=== PATIENT | male | born 1960 | race Caucasian/White ===

== ENCOUNTER 2017-10-14 16:43 | Outpatient (CLI) | payer BC | END 2017-10-14 16:44 | disposition home or self-care (01) | LOC: BICRAD 16:43 | PROVIDERS: ATTEND Specialist | DX: J44.9 Chronic obstructive pulmonary disease, unspecified (principal) | CPT/HCPCS: 71046 ==

== ENCOUNTER 2019-01-27 16:57 | Inpatient (IN) | payer BC ==
[~2019-01-27 16:57] MED LIST: ISOVUE-370 76%-LOCM 1 ML ONE
[2019-01-27 17:24] LABS: #Eosinphils 0.2 thou/uL (0.0-0.7); #Lymphocytes 1.1 thou/uL (1.20-3.40); #Monocytes 1.7 thou/uL (0.11-0.59); #Neutrophils 14.2 thou/uL (1.40-6.50); %Basophils 0.2 % (0.0-1.0); %Eosinophils 1.1 % (0.0-10.0); %Lymphocytes 6.4 % (21.0-51.0); %Monocytes 9.8 % (0.0-10.0); %Neutrophils 82.5 % (42.0-75.0); Hemoglobin 12.7 g/dL (14.0-18.0); Mean Corpuscular HGB CONC 34.4 g/dL (32.0-36.0); Mean Corpuscular Volume 87.1 fL (78.0-98.0); Mean Platelet Volume 6.7 fL (7.4-10.4); Platelet Count 398 thou/uL (130-400); RBC Distribution Width 11.9 % (11.5-14.5); Red Blood Cell (RBC) Count 4.25 mill/uL (4.70-6.10); White Blood Cell (WBC) Count 17.3 thou/uL (4.8-10.8)
[2019-01-27] MEDS ORDERED: Ondansetron PF 4 MG/2 ML Vial ONE (17:41)
[2019-01-27] MEDS ORDERED: Morphine 4 MG/ML VIAL ONE (17:41)
[2019-01-27 17:53] LABS: ALT (SGPT) 12 U/L (8-55); AST (SGOT) 13 U/L (5-34); Alkaline Phosphatase 91 U/L (40-150); Anion Gap 15 mmol/L (10-20); BUN (Urea Nitrogen) 15 mg/dL (8.4-25.7); Bilirubin, Total 0.4 mg/dL (0.2-1.2); Calc. Creatinine Clearance 0 mL/min (70-130); Calcium 9.9 mg/dL (7.8-10.44); Carbon Dioxide 26 mmol/L (22-29); Chloride 98 mmol/L (98-107); Estimated GFR-MDRD Greater than 90; Globulin 3.5 g/dL (2.4-3.5); Glucose 100 mg/dL (70-105); Lipase 8 U/L (8-78); Potassium 3.8 mmol/L (3.5-5.1); Protein, Total 7.5 g/dL (6.0-8.3); Sodium 135 mmol/L (136-145)
[2019-01-27 18:14] LABS: Bilirubin Small (Negative); Blood, Urine Negative (Negative); Clarity CLEAR (Clear); Glucose, Urine (Dipstick) Negative (Negative); Leukocyte Negative (Negative); Nitrite Negative (Negative); Protein, Urine (Dipstick) 30 mg/dL (Neg-Trace); Specific Gravity, Urine 1.024 (1.002-1.036)
[2019-01-27 18:16] LABS: Bacteria/HPF None Seen HPF (None Seen); Hyaline Casts/LPF 0-3 HYALINE CAST LPF (0-3 Hyaline); Squamous Epithelial 0-3 HPF (0-3)
--- NOTE | 2019-01-27 18:38 | CT ---
Contrast-enhanced CTA chest. HISTORY: Cough. Contrast-enhanced CTA chest performed. 2-D and 3-D reconstruction images performed on an independent 3-D workstation. CTA chest demonstrate coronary artery calcifications. Areas of emphysematous changes seen in superior segment of both upper lobes. No evidence of lymphadenopathy seen. No evidence of filling defects seen in the pulmonary arteries to suggest pulmonary emboli. The thoracic aorta is unremarkable with calcination seen. IMPRESSION: No evidence of pulmonary emboli.
[2019-01-27] MEDS ORDERED: Piperacillin/Tazobactam 4.5 GM VIAL ONE (20:03)
[2019-01-27] MEDS ORDERED: hydrALAZINE 20 MG/ML VIAL SLOW IVP PRN (20:43)
[2019-01-27] MEDS ORDERED: Lorazepam 2 MG/ML VIAL SLOW IVP PRN (20:43)
[2019-01-27] MEDS ORDERED: Dextrose 50% Abboject 50 ML SYRINGE SLOW IVP PRN (20:43)
[2019-01-27] MEDS ORDERED: Dextrose 5% in Water 1,000 ML IV PRN (20:43)
[2019-01-27] MEDS ORDERED: Ondansetron ODT 4 MG TAB PO PRN (20:43)
[2019-01-27] MEDS ORDERED: Ondansetron PF 4 MG/2 ML Vial IVP PRN (20:43)
[2019-01-27] MEDS ORDERED: traMADol HCl 50 MG TAB PO PRN (20:47)
[2019-01-27] MEDS ORDERED: Acetaminophen 1,000 MG in Premix Bag 1 BAG IVPB PRN (20:47)
[2019-01-27] MEDS: Lactated Ringer's 1,000 ML IV SCH (22:15)
[2019-01-27] MEDS: Enoxaparin Sodium 40 MG/0.4 ML SYRINGE SC SCH (22:15)
[2019-01-28] MEDS: Piperacillin/Tazobactam 3.375 GM in Sodium Chloride 0.9% 100 ML IVPB SCH ×4 (02:10→20:55)
--- NOTE | 2019-01-28 02:49 | HP ---
HISTORY OF PRESENT ILLNESS: Nabor Manning is a 58-year-old male patient, who drives trucks, works in the oil field, has had been ill for the past 3 to 4 weeks. He has had pain in his lower abdomen. He has suffered anorexia, weight loss, increased pain, but no fever. He has never had a colonoscopy. He is followed by Dr. Luis Robins. He saw Dr. Luis Robins in the office yesterday, and his treatment started for UTI. He does not recall the name of the antibiotic he was prescribed. He presents to the emergency room tonight and he was evaluated and noted to have a white count of 17, hemoglobin of 12, and basic metabolic profile is essentially normal. He then underwent a CAT scan of the abdomen and pelvis as well as a chest thorax CTA revealing diverticular abscess abutting the bladder 6.8 cm in diameter with air-fluid level. I have discussed this with Dr. César Evans, his outpatient radiologist, and after discussion with Dr. Evans, it is a minimal percutaneous drainage, and we will plan this on Wednesday. We will admit him for intravenous antibiotics. ALLERGIES: NONE. SOCIAL HISTORY: Tobacco a pack per day. Alcohol, none. PAST SURGICAL HISTORY: Noncontributory. PAST MEDICAL HISTORY: Diabetes mellitus type 2 on metformin, elevated cholesterol, bipolar illness. He is on vitamin D. PAST SURGICAL HISTORY: Noncontributory. No history of cardiac disease. MEDICATION LIST: Not provided. PHYSICAL EXAMINATION: VITAL SIGNS: Blood pressure 120/70, respiratory rate 18, and heart rate 74. HEAD, EARS, EYES, NOSE, AND THROAT: Unremarkable. LUNGS: Clear to auscultation. CARDIAC: Regular rate and rhythm without murmur or gallop. ABDOMEN: Soft. Mild tenderness in left lower quadrant. Otherwise, the abdomen is soft and nontender. EXTREMITIES: Unremarkable. NEUROLOGICAL: Intact. No ankle edema. ASSESSMENT AND PLAN: Diverticular abscess. We will plan admission to the hospital. Intravenous antibiotics and plan percutaneous drain CT-guided tomorrow. I have discussed with Dr. Evans, and we will plan this on Wednesday. We will make further recommendations depending on this procedure, more likely we will discharge home in the next few days on oral antibiotics and followup CAT scan in my office. Follow up CAT scan and follow up in my office. Hopefully, we can treat this non-operatively, and he will need a future colonoscopy in the next 6 to 8 weeks. Job ID: [id number]
[2019-01-28 04:35] VITALS: BMI 19.4
[2019-01-28 05:51] LABS: #Eosinphils 0.3 thou/uL (0.0-0.7); #Lymphocytes 0.9 thou/uL (1.20-3.40); #Monocytes 1.6 thou/uL (0.11-0.59); #Neutrophils 12.5 thou/uL (1.40-6.50); %Basophils 0.3 % (0.0-1.0); %Eosinophils 1.7 % (0.0-10.0); %Lymphocytes 5.6 % (21.0-51.0); %Monocytes 10.6 % (0.0-10.0); %Neutrophils 81.8 % (42.0-75.0); Hemoglobin 11.6 g/dL (14.0-18.0); Mean Corpuscular HGB CONC 32.6 g/dL (32.0-36.0); Mean Corpuscular Hemoglobin 28.7 pg (27.0-31.0); Mean Corpuscular Volume 88.2 fL (78.0-98.0); Mean Platelet Volume 6.8 fL (7.4-10.4); Platelet Count 347 thou/uL (130-400); RBC Distribution Width 11.9 % (11.5-14.5); Red Blood Cell (RBC) Count 4.04 mill/uL (4.70-6.10); White Blood Cell (WBC) Count 15.3 thou/uL (4.8-10.8)
[2019-01-28 05:56] LABS: INR-International Normal Ratio 1.2; Prothrombin Time 15.6 SEC (12.0-14.7)
[2019-01-28 06:23] LABS: Anion Gap 10 mmol/L (10-20); BUN (Urea Nitrogen) 9 mg/dL (8.4-25.7); Calc. Creatinine Clearance 81 mL/min (70-130); Carbon Dioxide 25 mmol/L (22-29); Chloride 105 mmol/L (98-107); Estimated GFR-MDRD Greater than 90; Glucose 115 mg/dL (70-105); Potassium 4.3 mmol/L (3.5-5.1); Sodium 136 mmol/L (136-145)
[2019-01-28] MEDS: Lactated Ringer's 1,000 ML IV SCH ×3 (08:03→19:05)
[2019-01-28] MEDS: Morphine 2 MG/ML SYRINGE SLOW IVP PRN (08:07)
[2019-01-28] MEDS ORDERED: Sodium Bicarbonate 2.5 MEQ/5 ML VIAL ONE (09:25)
[2019-01-28] MEDS ORDERED: Midazolam HCl 2 mg/2 ml Vial ONE (09:25)
[2019-01-28] MEDS ORDERED: Fentanyl 100 MCG/2 ML VIAL ONE (09:25)
--- NOTE | 2019-01-28 10:44 | CT ---
CT-guided abdominal abscess drainage HISTORY: Diverticular abscess. FINDINGS: After explaining the procedure and answering all questions, limited CT imaging was performe d. Sterile technique, buffered local seizure, CT guidance, and an anterior midline lower abdominal approach were used to carefully advance an 8 Paraguayan locking loop catheter into the gas and fluid cont aining abscess in the central lower abdomen. Trocar technique was used. Gas and a total volume of 250 cc of brown liquid fecal material were aspirated. A portion sent to lab oratory for evaluation. Catheter was secured externally with 0 silk suture and left draining to gravity. Patient tolerated the procedure well and was returned in improved condition. IMPRESSION: Technically successful CT-guided abscess drainage.
[2019-01-28] MEDS: RisperDAL Oral Solution 1 MG/ML UDCUP PO SCH (10:51)
--- NOTE | 2019-01-28 12:28 | PRG ---
DATE OF SERVICE: 01/28/2019 SUBJECTIVE: Nabor Manning is doing well today. He underwent percutaneous drainage of his diverticular abscess. This has retrieved foul smelling. OBJECTIVE: VITAL SIGNS: Temperature 100 degrees, 108 heart rate, blood pressure 126/68. LUNGS: Clear to auscultation. CARDIAC: Regular rate and rhythm. No murmur or gallop. ABDOMEN: Soft, nontender, and nondistended. Drainage catheter in place. Purulent drainage in his drain bag. LABORATORY DATA: This morning, his white count is down from 17 to 15. Hemoglobin stable at 11.6. Basic metabolic profile is normal. ASSESSMENT AND PLAN: Diverticular abscess with status post percutaneous drainage today CT-guided. We will plan irrigation of his drainage catheter 3 times a day, instructed the patient to have irrigate this. Anticipate discharge home in the next few days with plans to see him as an outpatient with a followup CAT scan and follow up in my office. He will need a future colonoscopy. Job ID: [id number]
[2019-01-28] MEDS: Ketorolac Tromethamine 30 MG/ML VIAL IVP PRN (17:26)
[2019-01-28] MEDS: Enoxaparin Sodium 40 MG/0.4 ML SYRINGE SC SCH (21:01)
[2019-01-29] MEDS: Piperacillin/Tazobactam 3.375 GM in Sodium Chloride 0.9% 100 ML IVPB SCH ×4 (02:52→21:00)
[2019-01-29] MEDS: Lactated Ringer's 1,000 ML IV SCH ×2 (02:52→10:59)
[2019-01-29] MEDS: RisperDAL Oral Solution 1 MG/ML UDCUP PO SCH (08:14)
[2019-01-29] MEDS: Morphine 2 MG/ML SYRINGE SLOW IVP PRN ×2 (08:19→10:28)
[2019-01-29] MEDS: Ketorolac Tromethamine 30 MG/ML VIAL IVP PRN (11:38)
--- NOTE | 2019-01-29 11:55 | PRG ---
DATE OF SERVICE: 01/29/2019 SUBJECTIVE: Nabor Manning is doing well today. He underwent a CT-guided percutaneous drainage of his diverticular abscess yesterday. He feels much better. OBJECTIVE: VITAL SIGNS: Temperature 98.8 degrees, pulse 86, blood pressure 112/61. LUNGS: Clear to auscultation. CARDIAC: Regular rate and rhythm without murmur or gallop. ABDOMEN: Soft, nontender, and nondistended. LABORATORY DATA: Drain purulent. Cultures, gram-negative luis, not hemolytic streptococcus, on Zosyn. ASSESSMENT AND PLAN: Diverticular abscess, status post CT-guided percutaneous drainage. Continue treatment. Anticipate discharge home tomorrow after teaching him drain care, irrigation, recording the output. We will send him home on oral antibiotics with followup outpatient CAT scan and visit in my office. Job ID: [id number]
[2019-01-29] MEDS: Morphine 4 MG/ML VIAL SLOW IVP PRN (14:59)
[2019-01-29] MEDS: Enoxaparin Sodium 40 MG/0.4 ML SYRINGE SC SCH (21:09)
[2019-01-29] MEDS: Acetaminophen 500 MG TAB PO PRN (21:10)
[2019-01-29] MEDS: HumaLOG 300 UNITS/3 ML VIAL SC PRN (21:13)
[2019-01-30] MEDS: Piperacillin/Tazobactam 3.375 GM in Sodium Chloride 0.9% 100 ML IVPB SCH ×4 (02:41→20:21)
[2019-01-30] MEDS: Morphine 4 MG/ML VIAL SLOW IVP PRN (06:18)
[2019-01-30] MEDS: RisperDAL Oral Solution 1 MG/ML UDCUP PO SCH (09:18)
[2019-01-30] MEDS: Acetaminophen 500 MG TAB PO PRN ×2 (09:33→17:55)
[2019-01-30] MEDS: traMADol HCl 50 MG TAB PO PRN ×2 (09:35→17:55)
[2019-01-30] MEDS: HumaLOG 300 UNITS/3 ML VIAL SC PRN ×2 (12:04→20:36)
[2019-01-30] MEDS: Enoxaparin Sodium 40 MG/0.4 ML SYRINGE SC SCH (20:20)
--- NOTE | 2019-01-30 23:30 | PRG ---
DATE OF SERVICE: 01/30/2019 SUBJECTIVE: Nabor Manning is doing well today. OBJECTIVE: VITAL SIGNS: Temperature 99.8 degrees, heart rate 101, blood pressure 97/55. LABORATORY DATA: Laboratories, none today. Drainage from his CT-guided drain, 45 mL of purulent. He feels better. His bladder type of symptom complaints are improving, but not resolved. He was reassured. Lungs are clear to auscultation. Cardiac, Regular rate and rhythm without murmur or gallop. Abdomen is soft and nontender. ASSESSMENT AND PLAN: Resolving diverticular abscess. Continue CT-guided drainage. Anticipate discharge home tomorrow on oral antibiotics. Job ID: [id number]
[2019-01-31] MEDS: Piperacillin/Tazobactam 3.375 GM in Sodium Chloride 0.9% 100 ML IVPB SCH ×3 (01:41→14:45)
[2019-01-31] MEDS: Acetaminophen 500 MG TAB PO PRN ×3 (01:46→14:49)
[2019-01-31] MEDS: traMADol HCl 50 MG TAB PO PRN ×2 (05:38→17:13)
[2019-01-31] MEDS: RisperDAL Oral Solution 1 MG/ML UDCUP PO SCH (08:40)
--- NOTE | 2019-01-31 10:02 | CT ---
Contrast-enhanced CTA chest. HISTORY: Cough. Contrast-enhanced CTA chest performed. 2-D and 3-D reconstruction images performed on an independent 3-D workstation. CTA chest demonstrate coronary artery calcifications. Areas of emphysematous changes seen in superior segment of both upper lobes. No evidence of lymphadenopathy seen. No evidence of filling defects seen in the pulmonary arteries to suggest pulmonary emboli. The thoracic aorta is unremarkable with calcination seen. IMPRESSION: No evidence of pulmonary emboli. Transcribed Date/Time: 01/31/2019 10:02 AM
--- NOTE | 2019-01-31 10:05 | CT ---
CT OF THE ABDOMEN AND PELVIS WITH CONTRAST 01/27/19 COMPARISON: None. HISTORY: Abdominal pain. Patient is taking an antibiotic for urinary tract infection. TECHNIQUE: Multiple contiguous axial images were obtained in a CT of the abdomen and pelvis with contrast. Coron al reformats were performed. FINDINGS: There is a 6.9 cm air fluid level sitting on top of the urinary bladder. This is immediately adjacent to the sigmoid colon which contains numerous diverticula. This likely represents a contained perfora blane abscess likely from prior acute diverticulitis. There is mild stranding change adjacent to this f luid collection and adjacent to the sigmoid colon. No free air or free fluid is seen in the abdomen o r pelvis. There is a 1.78 cm hypodensity in the right kidney which likely represents a cyst. The gallbladder, l eft kidney, adrenal glands, spleen, and pancreas are unremarkable. There are Subcentimeter hypodensit ies in the right lobe of the liver near the dome which are too small to definitely characterize but l ikely represents cysts. The small bowel is normal in caliber. The appendix is normal. No abdominal or pelvic lymphadenopathy are seen. Atherosclerotic calcifications are see in the aorta. Degenerative changes are seen in the spine. Please see dedicated chest CT for findings above the diap hragm. IMPRESSION: 1. Abscess in the pelvis likely sequela from acute diverticulitis. 2. Right renal cyst. 3. Likely hepatic cysts. POS: [facility]
[2019-01-31 17:05] VITALS: BP 97/57; TEMP 98.6
[2019-01-31] MEDS ORDERED: Amoxicillin/Potassium Clav 500 MG TAB PO SCH (21:00)
--- NOTE | 2019-02-01 02:49 | DIS ---
DATE OF ADMISSION: 01/27/2019 DATE OF DISCHARGE: 01/31/2019 DISCHARGE DIAGNOSIS: Diverticular abscess. PROCEDURE: CT-guided drainage of diverticular abscess. Plan home with the drain. He was instructed to irrigate this 2 to 3 times a day with saline. He is given saline syringes to accomplish this. He is to record the output. He will have a CAT scan of the abdomen and pelvis p.o. and IV contrast next week, day that he sees me and we will see him after that to determine when we can remove the drain. He is sent home with Augmentin 875 b.i.d. for 10 days, Levaquin 500 daily for 10 days, Ultram 50, #20. HISTORY: A 58-year-old male with pelvic and low back pain, urinary type symptoms, treated initially UTI, presented to the hospital emergency room with findings of large diverticular abscess. He was admitted overnight on intravenous antibiotics, underwent CT-guided drainage of his large abscess. He is instructed on drain maintenance and recording the output. PLAN: Follow up in my office next week after a CAT scan to determine drain management. He will need a future colonoscopy, given a low-fiber diet for 2 to 3 weeks, can transition to high-fiber after this. Job ID: [id number]
[2019-02-01] MEDS ORDERED: Ibuprofen 600 MG TAB PO PRN (23:59)
== END 2019-01-31 18:28 | disposition home or self-care (01) | DRG 392 ==
LOC: ERS 16:57 → SURG B 21:37
PROVIDERS: ADMIT Specialist; ATTEND Specialist
PROC: 0W9G30Z Drainage of Peritoneal Cavity with Drainage Device, Percutaneous Approach (ICD-10-PCS; principal; 2019-01-28)
DX: K57.80 Diverticulitis of intestine, part unspecified, with perforation and abscess without bleeding (principal); Z68.1 Body mass index [BMI] 19.9 or less, adult; R63.0 Anorexia; F17.210 Nicotine dependence, cigarettes, uncomplicated; E11.9 Type 2 diabetes mellitus without complications; F31.9 Bipolar disorder, unspecified; E78.5 Hyperlipidemia, unspecified; Z79.84 Long term (current) use of oral hypoglycemic drugs; Z79.899 Other long term (current) drug therapy
CPT/HCPCS: 36415; 36416; 49020; 71275; 74177; 77002; 80048; 80053; 81003; 81015; 83690; 84484; 85025; 85610; 85730; 87070; 87077; 87186; 87205; 93005; 96361; 96365; 96375; C1729; J1650; J1885; J2250; J2270; J2405; J2543; J3010; J3490; Q9966

== ENCOUNTER 2019-02-01 13:56 | Outpatient (CLI) | payer BC ==
--- NOTE | 2019-02-01 14:47 | CT ---
Exam: CT PELVIS WITHOUT CONTRAST: COMPARISON: 01/28/2019 HISTORY: Pelvic abscess. Patient has undergone recent percutaneous drainage catheter placement. FINDINGS: Redemonstration of a complex fluid collection measuring 7.4 x 7.4 x 7.0 cm. There is evidence of hype rdense material with pockets of air suggesting fecal material. Catheter position is appropriate, in the nondependent portion. Inflammatory changes of the adjacent colon are noted. There is mass effect upon the urinary IMPRESSION: Persistent abscess with fecal material. There is implication for a fistulous connection between the a djacent colon and this infected/fecal material containing collection. Results study discussed with Dr. Vargas 02/01/2019 at 2:46 PM Code CR Transcribed Date/Time: 02/01/2019 2:55 PM
== END 2019-02-01 13:57 | disposition home or self-care (01) ==
LOC: CT 13:56
PROVIDERS: ATTEND Specialist
DX: K65.1 Peritoneal abscess (principal)
CPT/HCPCS: 72192

== ENCOUNTER 2019-02-01 16:02 | Inpatient (IN) | payer BC ==
[2019-02-01 18:16] VITALS: BMI 19.6
[2019-02-01] MEDS ORDERED: Acetaminophen 500 MG TAB PO PRN (18:18)
[2019-02-01 19:05] LABS: #Eosinphils 0.5 thou/uL (0.0-0.7); #Lymphocytes 0.8 thou/uL (1.20-3.40); #Monocytes 1.1 thou/uL (0.11-0.59); #Neutrophils 11.2 thou/uL (1.40-6.50); %Basophils 0.3 % (0.0-1.0); %Eosinophils 3.7 % (0.0-10.0); %Lymphocytes 5.9 % (21.0-51.0); %Neutrophils 82.1 % (42.0-75.0); Hemoglobin 10.4 g/dL (14.0-18.0); Mean Corpuscular HGB CONC 31.8 g/dL (32.0-36.0); Mean Corpuscular Hemoglobin 28.4 pg (27.0-31.0); Mean Corpuscular Volume 89.3 fL (78.0-98.0); Mean Platelet Volume 6.4 fL (7.4-10.4); Platelet Count 393 thou/uL (130-400); RBC Distribution Width 12.2 % (11.5-14.5); Red Blood Cell (RBC) Count 3.66 mill/uL (4.70-6.10); White Blood Cell (WBC) Count 13.6 thou/uL (4.8-10.8)
[2019-02-01 19:25] LABS: ALT (SGPT) 45 U/L (8-55); AST (SGOT) 38 U/L (5-34); Albumin 3.1 g/dL (3.5-5.0); Alkaline Phosphatase 144 U/L (40-150); Anion Gap 11 mmol/L (10-20); BUN (Urea Nitrogen) 10 mg/dL (8.4-25.7); Bilirubin, Total 0.2 mg/dL (0.2-1.2); Calc. Creatinine Clearance 87 mL/min (70-130); Carbon Dioxide 28 mmol/L (22-29); Chloride 104 mmol/L (98-107); Estimated GFR-MDRD Greater than 90; Globulin 2.9 g/dL (2.4-3.5); Glucose 106 mg/dL (70-105); Sodium 139 mmol/L (136-145)
[2019-02-01] MEDS: Enoxaparin Sodium 40 MG/0.4 ML SYRINGE SC SCH (20:36)
[2019-02-01] MEDS: Piperacillin/Tazobactam 4.5 GM in Sodium Chloride 0.9% 100 ML IVPB SCH (20:36)
[2019-02-01] MEDS: traMADol HCl 50 MG TAB PO PRN (20:37)
--- NOTE | 2019-02-01 22:15 | HP ---
HISTORY OF PRESENT ILLNESS: Nabor Manning is a 58-year-old male patient, admitted on 01/27/2019, undergoing percutaneous drainage, CT-guided, for a large 12-cm pelvic diverticular abscess. In the hospital, he underwent serial scheduled irrigations and drainage, instructed on drain care. He received intravenous antibiotics. He was discharged home with Augmentin. He called my office today and reported drainage around the catheter exit site. He repeated the CAT scan of his pelvis and the abscess is no smaller. It is draining feculent material around the drainage catheter. The patient has a large diverticular abscess with internal fistula and plan at this time is to admit him for a bowel prep and plan laparotomy drainage and probable colostomy. We will ask Urology to place urological stent for protective reasons intraoperatively. We will discuss that with him. ALLERGIES: NONE. SOCIAL HISTORY: Tobacco, a pack per day. Alcohol, none. PAST SURGICAL HISTORY: Noncontributory. PAST MEDICAL HISTORY: Diabetes mellitus type 2, on metformin, elevated cholesterol, bipolar illness, vitamin D. REVIEW OF SYSTEMS: Ten-point noncontributory. PHYSICAL EXAMINATION: VITAL SIGNS: 118 pounds, 113/59, 91, 98.4 degrees. HEAD, EARS EYES, NOSE AND THROAT: Unremarkable. LUNGS: Clear to auscultation. CARDIAC: Regular rate and rhythm without murmur or gallop. ABDOMEN: Soft and nontender. Frequent drainage around his percutaneous drain, right lower quadrant, minimal drainage in his bag. EXTREMITIES: Unremarkable. ASSESSMENT AND PLAN: Failed nonsurgical treatment of large diverticular abscess. We will plan the procedure as discussed above. He understands the risks and benefits. He understands the colostomy would be temporary. Job ID: [id number]
[2019-02-02] MEDS: Piperacillin/Tazobactam 4.5 GM in Sodium Chloride 0.9% 100 ML IVPB SCH ×5 (00:38→23:47)
[2019-02-02] MEDS: traMADol HCl 50 MG TAB PO PRN ×4 (02:21→23:55)
[2019-02-02] MEDS ORDERED: Sodium Chloride 0.9% 1,000 ML IV SCH (06:00)
[2019-02-02] MEDS: GoLYTELY 4,000 ml Bottle PO SCH (07:45)
--- NOTE | 2019-02-02 09:10 | PRG ---
DATE OF SERVICE: 02/02/2019 SUBJECTIVE: Nabor Manning is doing well today. He is admitted yesterday for persistent diverticular abscess, pelvis, 17 cm with feculent drainage indicative of colocutaneous fistula as the feculent drainage is draining out around the catheter. Surgical intervention is required. I have talked to Dr. De Leon, who will plan cystoscopy in the morning. OBJECTIVE: VITAL SIGNS: Temperature 98.2 degrees, heart rate 89, respiratory rate 16, blood pressure 119/66. LUNGS: Clear to auscultation. CARDIAC: Rhythm. No murmur or gallop. ABDOMEN: Soft, nontender. His drain is not draining much at all, mostly feculent drainage around the drain. His abdomen is soft. ASSESSMENT AND PLAN: Diverticular abscess with feculent drainage. We will plan surgical intervention tomorrow. He understands risks and benefits. Questions answered. Bowel prep today. Clear liquids today. Surgery tomorrow. Job ID: [id number]
[2019-02-02] MEDS: Enoxaparin Sodium 40 MG/0.4 ML SYRINGE SC SCH (20:06)
[2019-02-03] MEDS: Piperacillin/Tazobactam 4.5 GM in Sodium Chloride 0.9% 100 ML IVPB SCH ×4 (05:54→23:35)
[2019-02-03] MEDS ORDERED: Sodium Chloride 0.9% 1,000 ML IV SCH (06:00)
[2019-02-03] MEDS ORDERED: HYDROmorphone 2 MG/ML VIAL ONE ×2 (06:23→10:32)
[2019-02-03] MEDS ORDERED: Lidocaine 1% (PF) 30 ML VIAL ONE (06:34)
[2019-02-03] MEDS ORDERED: Midazolam HCl 2 mg/2 ml Vial ONE ×2 (06:34→06:42)
[2019-02-03] MEDS ORDERED: Fentanyl 100 MCG/2 ML VIAL ONE ×2 (06:34→10:32)
[2019-02-03] MEDS ORDERED: Glycopyrrolate 0.2 MG/ML 5 ML SYRINGE ONE ×2 (06:42→13:17)
[2019-02-03] MEDS ORDERED: Famotidine/PF 20 mg/2ml Vial ONE (06:42)
[2019-02-03] MEDS ORDERED: Scopolamine 1.5 mg/72 hour Patch ONE (06:43)
[2019-02-03] MEDS ORDERED: Iothalamate Meglumine 60% 50 ML VIAL FS ONE (07:06)
--- NOTE | 2019-02-03 09:24 | CON ---
DATE OF CONSULTATION: 02/02/2019 REASON FOR CONSULTATION: Diverticular abscess. HISTORY OF PRESENT ILLNESS: Mr. Manning is a 58-year-old white male, who presented with a 12 cm pelvic diverticular abscess. He had undergone CT percutaneous guided drainage, but unfortunately this has not resolved despite multiple irrigations through the percutaneous drain and prolonged antibiotics. Feculent, infected material is now draining around the catheter and it is concerning that the patient may have an internal fistula. He has planned laparotomy with possible colostomy and Dr. Vargas has requested that stents be placed for assistance of identifying the ureters during the surgery. The patient states that he does not have any significant urologic complaints right now. He denies any hematuria, fecaluria, UTI symptoms or difficulty urinating or incontinence. 1. Tramadol. 2. Risperdal. 3. Metformin. 4. Rosuvastatin. 5. Levaquin. 6. Ibuprofen. 7. Augmentin. 8. Tylenol. PAST MEDICAL HISTORY: 1. Diabetes mellitus type 2. 2. Elevated cholesterol. 3. Bipolar disease. 4. Vitamin D deficiency. 5. Diverticulosis. PAST SURGICAL HISTORY: Percutaneous drain placement. Otherwise, no major surgeries. FAMILY HISTORY: Noncontributory. SOCIAL HISTORY: The patient denies illicit drug use. Does smoke cigarettes approximately 1 pack per day. No alcohol use. REVIEW OF SYSTEMS: A 12-point review of systems reviewed and otherwise unremarkable other than the chronic pain that the patient has in the left lower quadrant. He denies any nausea, vomiting, or bright red blood per stools. Remainder of review of systems reviewed and otherwise negative. PHYSICAL EXAMINATION: VITAL SIGNS: Temperature 99, pulse 103, respirations 16, blood pressure 122/71 , and saturation 94% on room air. GENERAL: No apparent distress, communicative, alert, appears stated age. Somewhat thin built. HEENT: Normocephalic, atraumatic. Pupils symmetric and round. Sclerae nonicteric. Moist mucous membranes. Trachea midline. CARDIOVASCULAR: Regular rate and rhythm. Normal S1, S2. Symmetric pulses. CHEST: No increased work of breathing. Symmetric expansion of the lungs. Clear anteriorly. ABDOMEN: Soft, nondistended. There is mild tenderness in the left lower quadrant with a percutaneous drain in place with somewhat feculent material around it under the dressing. No rebound or guarding. No organomegaly. Liver and spleen not enlarged. : Nonfocal. No catheter in place. Rectal exam is deferred at this time. EXTREMITIES: No clubbing, cyanosis, or edema. SKIN: Warm and dry. No rashes or lesions. Good turgor. MUSCULOSKELETAL: No joint deformities or joint erythema noted. Full range of motion. NEUROLOGIC: Cranial nerves 2 through 12 grossly intact. No focal or sensory motor deficits identified. PSYCHIATRIC: Alert and oriented x3. Appropriate mood and affect. LABORATORY EVALUATION: Full set of labs are in the [facility] system, which I reviewed. Of note, the patient's white count is 13.6, hemoglobin of 10.4, platelet count of 393, and creatinine 0.70. ASSESSMENT AND PLAN: A 58-year-old white male with a large diverticular abscess , which has likely resulted in a perforation and either a sinus tract, fistula formation between the bowel and his skin. He is planned for laparotomy and due to the significant amount of inflammatory response likely present in the pelvis, Dr. Vargas has requested ureteral catheterization or stents to building carpenter helper identification of the ureter. I think this is extremely reasonable and I would recommend that this be done to avoid ureteral injury. I have discussed placement of a ureteral catheter with the patient either on the left side or bilaterally as needed. Risks and benefits of surgery were discussed including, but not limited to, kidney and ureteral injury, ureteral stricture formation, need for further procedures, urinary tract infection, gross hematuria, damage to the bladder or urethra. He understands these risks and states he is okay to proceed forward with ureteral catheterization at the start of the patient's laparotomy. If there is any difficulty or injury to the ureter during the case, I will be happy to assist if I am called. Once the patient has completed the surgery, if there are no ureteral injuries, the ureteral catheter will be affixed to the Ross catheter and can be removed when the Ross catheter is removed as deemed necessary by the primary surgeon. Job ID: [id number] [facility]
[2019-02-03 09:26] LABS: Bilirubin Negative (Negative); Blood, Urine Trace (Negative); Clarity CLEAR (Clear); Glucose, Urine (Dipstick) Negative (Negative); Leukocyte Negative (Negative); Nitrite Negative (Negative); Protein, Urine (Dipstick) Negative (Neg-Trace); Specific Gravity, Urine 1.009 (1.002-1.036); Urobilinogen 0.2 mg/dL (0.2-1.0); pH, Urine 6.5 (5.0-9.0)
[2019-02-03 09:38] LABS: RBC/HPF 0-3 HPF (0-3); Squamous Epithelial 0-3 HPF (0-3); WBC/HPF 0-3 HPF (0-3)
[2019-02-03 09:39] LABS: Bacteria/HPF None Seen HPF (None Seen); Hyaline Casts/LPF NONE SEEN LPF (0-3 Hyaline)
[2019-02-03] MEDS ORDERED: SUGAMMADEX SODIUM 200 MG/2 ML VIAL ONE (10:02)
[2019-02-03] MEDS ORDERED: Promethazine HCl 25 MG/ML VIAL ONE (10:32)
[2019-02-03] MEDS ORDERED: Morphine 4 MG/ML VIAL SLOW IVP PRN (10:37)
[2019-02-03] MEDS ORDERED: Promethazine HCl 25 MG/ML VIAL IM PRN ×2 (10:42→11:16)
[2019-02-03] MEDS ORDERED: Promethazine HCl 25 MG/ML VIAL SLOW IVP PRN (10:42)
[2019-02-03] MEDS ORDERED: Ondansetron HCl/PF 4 MG/2 ML Vial IVP PRN (10:42)
[2019-02-03] MEDS: GoLYTELY 4,000 ml Bottle PO SCH (10:56)
[2019-02-03] MEDS ORDERED: Ondansetron PF 4 MG/2 ML Vial IVP PRN ×2 (11:16→12:00)
[2019-02-03] MEDS ORDERED: Zolpidem Tartrate 5 MG TAB PO PRN (11:16)
[2019-02-03] MEDS ORDERED: Communication Order-Pharmacy FS SCH (11:30)
[2019-02-03] MEDS ORDERED: Naloxone HCl 0.4 mg/ml Vial IV PRN (12:00)
[2019-02-03] MEDS ORDERED: diphenhydrAMINE 50 MG/ML VIAL IVP PRN (12:00)
[2019-02-03] MEDS ORDERED: diphenhydrAMINE 50 MG/ML VIAL IM PRN (12:00)
[2019-02-03] MEDS ORDERED: diphenhydrAMINE 25 MG CAP PO PRN (12:00)
[2019-02-03] MEDS ORDERED: Bupivacaine HCl 0.5%/Epinephrine 1:200,000/PF 30 ml Vial ONE (12:20)
[2019-02-03] MEDS ORDERED: Ondansetron PF 4 MG/2 ML Vial ONE (13:17)
[2019-02-03] MEDS ORDERED: Esmolol 100 MG/10 ML VIAL ONE (13:17)
[2019-02-03] MEDS ORDERED: PROPOFOL 200 MG/20 ML VIAL ONE (13:17)
[2019-02-03] MEDS ORDERED: Rocuronium Bromide 10 MG/ML (10ML VIAL) ONE (13:17)
[2019-02-03] MEDS ORDERED: Succinylcholine Chloride 20 MG/ML 10 ml SYRINGE FS ONE (13:17)
[2019-02-03] MEDS ORDERED: Lidocaine 1% PF 5 ML VIAL ONE (13:17)
[2019-02-03 14:04] LABS: #Lymphocytes 0.6 thou/uL (1.20-3.40); #Neutrophils 14.4 thou/uL (1.40-6.50); %Eosinophils 0.3 % (0.0-10.0); %Lymphocytes 3.9 % (21.0-51.0); %Monocytes 6.1 % (0.0-10.0); %Neutrophils 89.7 % (42.0-75.0); Hemoglobin 10.4 g/dL (14.0-18.0); Mean Corpuscular HGB CONC 32.1 g/dL (32.0-36.0); Mean Corpuscular Hemoglobin 28.5 pg (27.0-31.0); Platelet Count 398 thou/uL (130-400); RBC Distribution Width 12.5 % (11.5-14.5); Red Blood Cell (RBC) Count 3.65 mill/uL (4.70-6.10)
[2019-02-03] MEDS: Acetaminophen 1,000 MG in Premix Bag 1 BAG IVPB SCH ×3 (14:13→23:10)
[2019-02-03] MEDS: Ketorolac Tromethamine 30 MG/ML VIAL IVP SCH ×3 (14:13→23:09)
[2019-02-03] MEDS: Lactated Ringer's 1,000 ML IV SCH ×2 (14:14→22:09)
--- NOTE | 2019-02-03 16:45 | OP ---
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 PROCEDURES PERFORMED: Exploratory laparotomy, mobilization of splenic flexure, sigmoid colon resection, Melanie pouch marked with a 2-0 Prolene, end-colostomy, and removal of ureteral stents for placement of Ross. ANESTHESIA: General, TAP block. INDICATIONS FOR PROCEDURE: Dr. Miles placed bilateral ureteral stents. During the procedure, the abscess involved the back wall of the bladder and the bladder was filled with methylene blue and there was no spillage. Ureteral stents did not traverse the entire ureters. DESCRIPTION OF PROCEDURE: The patient was taken to the operating room, where under general anesthesia, TAP block, in the dorsal lithotomy position. Dr. Miles performed cystoscopy and placed bilateral ureteral stents. Abdomen was prepared with ChloraPrep. Perineum and thighs prepared with Betadine and draped in routine fashion. Incision was made from above the umbilicus to the pubis, carried down through the skin, subcutaneous tissue, and midline fascia and abdominal cavity sharply. The CT-guided percutaneous drain had been removed prior. The small area of skin involved with the percutaneous drain was excised. The diverticular abscess and fistula involved a large cavity occupying the posterior bladder adjacent thickening in this bladder wall. There were inflammatory changes over the dome of the bladder. Sigmoid colon was dissected free from the back wall of the bladder. Sigmoid colon was mobilized. The patient's iliac arteries were calcified and hard. Omentum taken down from the distal transverse colon using cautery and splenic flexure. Distal transverse colon and descending colon mobilized for later colostomy reversal. The ureter kept free of harm. Rectosigmoid was dissected free and divided with a contour stapler. Mesentery dissected free cephalad, dividing the superior hemorrhoidal with LigaSure. Inferior mesenteric artery divided with 2-0 silk ties and LigaSure. Mesentery divided up to the colon proximal to the inflammatory process and the colon divided with a contour stapler. Colon dissected free and we had adequately for later colostomy reversal. The ureteral stents could not be palpated this point, although the ureter identified kept free of harm. The ureteral stents had migrated caudally. Abdominal cavity irrigated. Irrigant evacuated. Good hemostasis noted. At this point, Seprafilm placed between the viscera and abdominal wall. Fascia approximated with continuous suture of #1 PDS after cruciate incision made in the left lower quadrant. A circular defect of skin created in the colon brought out through the colostomy. Skin subcutaneous tissues irrigated skin approximated loosely with debra. Telfa maria isabel and incisional VAC device (suboptimal) placed on the wound. Colostomy matured with 4 Nava sutures of 3-0 Vicryl excising the staple line. Simple sutures of 3-0 Vicryl completing colostomy maturation and colostomy bag applied. The patient tolerated the procedure well. Job ID: [id number]
[2019-02-03] MEDS: Enoxaparin Sodium 40 MG/0.4 ML SYRINGE SC SCH (20:29)
[2019-02-03] MEDS ORDERED: Ondansetron ODT 8 MG TAB SL PRN (21:00)
[2019-02-03] MEDS ORDERED: Ondansetron ODT 8 MG TAB PO PRN (21:00)
--- NOTE | 2019-02-03 22:13 | OP ---
DATE OF PROCEDURE: 02/03/2019 SERVICE: Urology. PREOPERATIVE DIAGNOSIS: Diverticular abscess. POSTOPERATIVE DIAGNOSIS: Diverticular abscess. PROCEDURE PERFORMED: Bilateral ureteral catheterizations. INDICATION FOR PROCEDURE: Mr. Manning is a 58-year-old white male with a perforated diverticular abscess with feculent material draining around his percutaneous drain. He is being taken to the operating room today for likely partial colectomy and colostomy creation. Dr. Vargas, his surgeon has requested bilateral ureteral catheterizations to aid in the identification of the ureters to avoid ureteral injury. I have discussed the case with the patient with all risks and benefits, and he has agreed to proceed forward. DESCRIPTION OF PROCEDURE: After identification of armband and verification of consent, the patient was brought back to the operating room where he underwent general anesthesia with endotracheal intubation. He was then placed in dorsal lithotomy position and prepped and draped in usual sterile fashion. After appropriate time-out, a lubricated 22-Palauan rigid cystoscope was introduced per urethra into the bladder. The prostate was only mildly hypertrophic and the bladder showed intense inflammation, especially on the left and anterior bladder. There was no evidence of fistulous connection or actual damage to the integrity of the bladder wall. Both ureters were in the orthotopic location. The left ureter was cannulated with a 0.035 Sensor wire up to the level of renal pelvis, which was confirmed on fluoroscopy. A 5-Palauan Mojave catheter was advanced over the Sensor wire up to the level of the ureteropelvic junction. The Sensor wire was then removed and the cystoscope was removed leaving the Mojave catheter in place. The cystoscope was then introduced back into the bladder alongside the 1st Mojave catheter and the same procedure repeated on the right side. This was also positioned at the right ureteropelvic junction. The cystoscope was then removed. The Mojave catheters were trimmed and then placed through the Ross catheter into the catheter drainage bag. This was then secured with tape and the catheter was left to gravity drainage along with the Mojave catheters, which were in the ureters which will also drain into the bag. The patient was then taken out of lithotomy and positioned for his laparotomy, which Dr. Vargas will dictate separately from this. COMPLICATIONS: None. ESTIMATED BLOOD LOSS: Minimal. RETAINED TUBES AND DRAINS: Bilateral 5-Palauan pollock catheters and a 16-Palauan Ross catheter. SPECIMENS: Urinalysis. DISPOSITION: The patient will be kept in the hospital under the surgical team. From my standpoint, the catheter can be removed at the end of the case and a regular Ross replaced. The Ross can be removed whenever deemed necessary by the primary team. Job ID: [id number]
[2019-02-04 04:24] LABS: Anion Gap 13 mmol/L (10-20); BUN (Urea Nitrogen) 6 mg/dL (8.4-25.7); Calc. Creatinine Clearance 78 mL/min (70-130); Calcium 8.3 mg/dL (7.8-10.44); Carbon Dioxide 28 mmol/L (22-29); Chloride 102 mmol/L (98-107); Estimated GFR-MDRD Greater than 90; Glucose 112 mg/dL (70-105); Potassium 4.1 mmol/L (3.5-5.1); Sodium 139 mmol/L (136-145)
[2019-02-04 05:24] LABS: Hemoglobin 10.3 g/dL (14.0-18.0); Mean Corpuscular HGB CONC 31.3 g/dL (32.0-36.0); Mean Corpuscular Hemoglobin 28.1 pg (27.0-31.0); Mean Corpuscular Volume 89.8 fL (78.0-98.0); Mean Platelet Volume 6.3 fL (7.4-10.4); Platelet Count 422 thou/uL (130-400); RBC Distribution Width 12.6 % (11.5-14.5); Red Blood Cell (RBC) Count 3.68 mill/uL (4.70-6.10); White Blood Cell (WBC) Count 21.3 thou/uL (4.8-10.8)
[2019-02-04 05:25] LABS: Band 27 % (5-11); Lymphocytes 2 % (21-51); MDiff Complete? YES; Monocytes 1 % (0-10); Neutrophil 70 % (42-75)
[2019-02-04] MEDS: Acetaminophen 1,000 MG in Premix Bag 1 BAG IVPB SCH ×3 (05:59→21:33)
[2019-02-04] MEDS: Piperacillin/Tazobactam 4.5 GM in Sodium Chloride 0.9% 100 ML IVPB SCH ×4 (05:59→23:53)
[2019-02-04] MEDS: Ketorolac Tromethamine 30 MG/ML VIAL IVP SCH ×4 (05:59→23:52)
[2019-02-04] MEDS: Lactated Ringer's 1,000 ML IV SCH ×3 (06:02→21:34)
--- NOTE | 2019-02-04 09:24 | PDOC.GSPN ---
Surgery Progress Note: Subj - Subjective Patient reports: no new complaints, tolerating liquids well (S/p sigmoidectomy with colostomy secondary to diverticular abscess.) Surgery Progress Note: Obj - Vital signs Vital signs: Vital Signs - Most Recent Temp Pulse Resp BP Pulse Ox 98.6 F 106 H 16 91/74 97 02/04/19 07:25 02/04/19 07:25 02/04/19 07:25 02/04/19 07:25 02/04/19 07:25 - Physical Exam General: no distress Genitourinary (Male): other (Ross in place.) Wound: wound vac (Vac dsg intact with good seal.), ostomy/colostomy (Mucosa pink. No stool or air in bag yet.) Surgery Progress Note: Results - Labs Result Diagrams: 02/04/19 03:44 02/04/19 03:44 Lab results: Laboratory Results - last 24 hr 02/04/19 02/04/19 02/04/19 03:44 03:44 06:09 WBC 21.3 H RBC 3.68 L Hgb 10.3 L Hct 33.1 L MCV 89.8 MCH 28.1 MCHC 31.3 L RDW 12.6 Plt Count 422 H MPV 6.3 L Neutrophils % (Manual) 70 Band Neuts % (Manual) 27 H Lymphocytes % (Manual) 2 L Monocytes % (Manual) 1 Sodium 139 Potassium 4.1 Chloride 102 Carbon Dioxide 28 Anion Gap 13 BUN 6 L Creatinine 0.78 Estimated GFR (MDRD) Greater than 90 Glucose 112 H POC Glucose 123 H Calcium 8.3 Surgery Progress Note: A/P - Problem (1) Colonic diverticular abscess Current Visit: Yes Code(s): K57.20 - DVTRCLI OF LG INT W PERFORATION AND ABSCESS W/O BLEEDING Status: Acute - Plan Plan: Continue on clear liquids today. Continue Zosyn. Encouraged to ambulate.
[2019-02-04] MEDS ORDERED: Acetaminophen 500 MG TAB PO PRN (12:00)
[2019-02-04] MEDS ORDERED: Ketorolac Tromethamine 30 MG/ML VIAL IVP SCH (13:00)
[2019-02-04] MEDS: Enoxaparin Sodium 40 MG/0.4 ML SYRINGE SC SCH (19:49)
[2019-02-04] MEDS: fentaNYL Citrate/PF 2,000 MCG in Sodium Chloride 0.9% 60 ML IV PRN (21:33)
[2019-02-05] MEDS: Acetaminophen 1,000 MG in Premix Bag 1 BAG IVPB SCH ×3 (05:32→21:12)
[2019-02-05] MEDS: Piperacillin/Tazobactam 4.5 GM in Sodium Chloride 0.9% 100 ML IVPB SCH (05:32)
[2019-02-05] MEDS: Ketorolac Tromethamine 30 MG/ML VIAL IVP SCH ×2 (05:32→11:24)
[2019-02-05 05:36] LABS: Anion Gap 11 mmol/L (10-20); BUN (Urea Nitrogen) 13 mg/dL (8.4-25.7); Calc. Creatinine Clearance 70 mL/min (70-130); Calcium 8.5 mg/dL (7.8-10.44); Carbon Dioxide 29 mmol/L (22-29); Chloride 102 mmol/L (98-107); Estimated GFR-MDRD 90; Glucose 87 mg/dL (70-105); Sodium 138 mmol/L (136-145)
[2019-02-05] MEDS: Lactated Ringer's 1,000 ML IV SCH ×3 (05:50→21:13)
[2019-02-05 06:01] LABS: Band 6 % (5-11); Hemoglobin 9.1 g/dL (14.0-18.0); Lymphocytes 7 % (21-51); MDiff Complete? YES; Mean Corpuscular HGB CONC 31.6 g/dL (32.0-36.0); Mean Corpuscular Hemoglobin 28.7 pg (27.0-31.0); Mean Corpuscular Volume 90.7 fL (78.0-98.0); Mean Platelet Volume 6.6 fL (7.4-10.4); Monocytes 4 % (0-10); Neutrophil 83 % (42-75); Platelet Count 411 thou/uL (130-400); Platelet Morphology Comment Appears Increased; RBC Distribution Width 12.6 % (11.5-14.5); RBC Morphology Normal; Red Blood Cell (RBC) Count 3.19 mill/uL (4.70-6.10); White Blood Cell (WBC) Count 22.6 thou/uL (4.8-10.8)
--- NOTE | 2019-02-05 09:00 | PDOC.GSPN ---
Surgery Progress Note: Subj - Subjective Patient reports: pain well controlled, tolerating liquids well Surgery Progress Note: Obj - Vital signs Vital signs: Vital Signs - Most Recent Temp Pulse Resp BP Pulse Ox 98.1 F 93 18 106/62 95 02/05/19 08:08 02/05/19 08:08 02/05/19 08:08 02/05/19 08:08 02/05/19 08:08 - Physical Exam Abdomen: soft, appropriately tender, other (Wound healing well) Surgery Progress Note: Results - Labs Result Diagrams: 02/05/19 04:40 02/05/19 04:40 Lab results: Laboratory Results - last 24 hr 02/04/19 02/05/19 02/05/19 21:06 04:40 04:40 WBC 22.6 H RBC 3.19 L Hgb 9.1 L Hct 28.9 L MCV 90.7 MCH 28.7 MCHC 31.6 L RDW 12.6 Plt Count 411 H MPV 6.6 L Neutrophils % (Manual) 83 H Band Neuts % (Manual) 6 Lymphocytes % (Manual) 7 L Monocytes % (Manual) 4 Plt Morphology Comment Appears Increased H RBC Morph Comment Normal Sodium 138 Potassium 4.0 Chloride 102 Carbon Dioxide 29 Anion Gap 11 BUN 13 Creatinine 0.87 Estimated GFR (MDRD) 90 Glucose 87 POC Glucose 116 H Calcium 8.5 02/05/19 05:40 WBC RBC Hgb Hct MCV MCH MCHC RDW Plt Count MPV Neutrophils % (Manual) Band Neuts % (Manual) Lymphocytes % (Manual) Monocytes % (Manual) Plt Morphology Comment RBC Morph Comment Sodium Potassium Chloride Carbon Dioxide Anion Gap BUN Creatinine Estimated GFR (MDRD) Glucose POC Glucose 85 Calcium Surgery Progress Note: A/P - Problem (1) Colonic diverticular abscess Current Visit: Yes Code(s): K57.20 - DVTRCLI OF LG INT W PERFORATION AND ABSCESS W/O BLEEDING Status: Acute - Plan Plan: Advance to full liquid diet
[2019-02-05] MEDS: Insulin Regular 300 UNITS/3 ML VIAL SC PRN (16:38)
[2019-02-05] MEDS ORDERED: risperiDONE 1 MG TAB PO SCH (17:30)
[2019-02-05] MEDS: Enoxaparin Sodium 40 MG/0.4 ML SYRINGE SC SCH (21:12)
[2019-02-05] MEDS: fentaNYL Citrate/PF 2,000 MCG in Sodium Chloride 0.9% 60 ML IV PRN (21:15)
[2019-02-06] MEDS: Acetaminophen 1,000 MG in Premix Bag 1 BAG IVPB SCH (05:26)
[2019-02-06 08:30] LABS: #Basophils 0.1 thou/uL (0.0-0.2); #Eosinphils 0.4 thou/uL (0.0-0.7); #Lymphocytes 0.8 thou/uL (1.20-3.40); #Monocytes 0.8 thou/uL (0.11-0.59); #Neutrophils 12.9 thou/uL (1.40-6.50); %Basophils 0.4 % (0.0-1.0); %Eosinophils 2.6 % (0.0-10.0); %Lymphocytes 5.1 % (21.0-51.0); Hemoglobin 8.7 g/dL (14.0-18.0); Mean Corpuscular HGB CONC 31.1 g/dL (32.0-36.0); Mean Corpuscular Hemoglobin 28.4 pg (27.0-31.0); Mean Corpuscular Volume 91.4 fL (78.0-98.0); Mean Platelet Volume 6.6 fL (7.4-10.4); Platelet Count 417 thou/uL (130-400); RBC Distribution Width 12.5 % (11.5-14.5); Red Blood Cell (RBC) Count 3.06 mill/uL (4.70-6.10); White Blood Cell (WBC) Count 14.9 thou/uL (4.8-10.8)
[2019-02-06] MEDS: risperiDONE 1 MG TAB PO SCH (08:35)
[2019-02-06] MEDS ORDERED: Ibuprofen 600 MG TAB PO PRN (11:53)
[2019-02-06] MEDS ORDERED: traMADol HCl 50 MG TAB PO PRN (12:00)
--- NOTE | 2019-02-06 12:11 | PRG ---
DATE OF SERVICE: SUBJECTIVE: Nabor Manning is doing well today. He is tolerating his diet. He is on a [employer] still. He is on full liquids. He does not have any pain or his pain is well controlled. OBJECTIVE: LUNGS: Clear to auscultation. CARDIAC: Regular rate and rhythm without murmur or gallop. ABDOMEN: Soft. Midline wound looks dressing dry with incisional VAC on. Colostomy healthy. EXTREMITIES: Unremarkable. LABORATORY DATA: Hemoglobin 8.7, white count 14.9. Basic metabolic profile normal. Urine is slightly blood-tinged much clearer than before. ASSESSMENT AND PLAN: Status post drainage of peritoneal abscess, sigmoid resection, colostomy and stent placement and removal perioperatively. His hematuria has improved. We will remove his Ross, discontinue his [employer], place him on oral analgesics, and discontinue his antibiotics. He should be ready for discharge home tomorrow. We will plan for wound care, ostomy care, teach him colostomy care and colostomy supplies. Job ID: [id number]
[2019-02-06] MEDS: traMADol HCl 50 MG TAB PO PRN ×2 (14:50→20:46)
[2019-02-06] MEDS: Acetaminophen 500 MG TAB PO PRN (18:29)
[2019-02-06] MEDS: Insulin Regular 300 UNITS/3 ML VIAL SC PRN (18:46)
[2019-02-06] MEDS: Enoxaparin Sodium 40 MG/0.4 ML SYRINGE SC SCH (20:43)
[2019-02-07] MEDS: traMADol HCl 50 MG TAB PO PRN ×2 (03:39→12:01)
[2019-02-07] MEDS: risperiDONE 1 MG TAB PO SCH (08:15)
[2019-02-07] MEDS: Acetaminophen 500 MG TAB PO PRN (12:01)
[2019-02-07 15:32] VITALS: BP 109/58; TEMP 98.2
--- NOTE | 2019-02-07 22:16 | DIS ---
DATE OF ADMISSION: 02/01/2019 DATE OF DISCHARGE: 02/07/2019 DISCHARGE DIAGNOSES: Diverticular abscess, refractory to medical management including CT-guided drainage, which was failed. History of radiation therapy to pelvis. Hematuria in this hospitalization seen, ureteral stents placed by Dr. Miles. Laparotomy under general anesthesia, TAP block with sigmoid colon resection and colostomy and Melanie's procedure. Seprafilm used. HISTORY: A 58-year-old male patient recently hospitalized for a very large diverticular abscess and initially treated for UTI due to urinary symptoms, but found on admission to have a large 12-14 cm diverticular abscess. He underwent CT-guided drainage. He was educated on draining and irrigating the catheter, but the abscess persisted on followup CAT scan. The drain had ceased, he continued to have some since, he was thus admitted after a bowel prep for the above procedure. Dr. Miles placed ureteral stents and cystoscopy that morning, bladder irritation was noted from radiation therapy. Ureteral stents placed. He underwent the above-described operation under general anesthesia and TAP block. Postoperatively, has tolerated his diet and is discharged home with colostomy supplies and after education of colostomy care. Telfa maria isabel and incisional wound VAC were removed on discharge. He did have some intermittent wound drainage as expected. He will wash the wound daily with soap and water in the shower or bath, pat dry, place a dry dressing until drainage ceases, then he may leave it open. He will resume his home medications including tramadol, risperidone, metformin, rosuvastatin, Motrin p.r.n., Tylenol Extra Strength, tramadol p.r.n. Diet and activity as tolerated. Avoid lifting over 25 pounds for 6 weeks. Follow up in my office in a week and a half. Anticipate a colostomy reversal after 3 months laparoscopically. Job ID: [id number]
== END 2019-02-07 17:30 | disposition home or self-care (01) | DRG 329 ==
LOC: T4-B 17:14 → SJJU 02-03 13:13
PROVIDERS: ADMIT Specialist; ATTEND Specialist
PROC: 0DTN0ZZ Resection of Sigmoid Colon, Open Approach (ICD-10-PCS; principal; 2019-02-03)
PROC: 0T788DZ Dilation of Bilateral Ureters with Intraluminal Device, Via Natural or Artificial Opening Endoscopic (ICD-10-PCS; 2019-02-03)
PROC: 0D1M0Z4 Bypass Descending Colon to Cutaneous, Open Approach (ICD-10-PCS; 2019-02-03)
PROC: 3E0M05Z Introduction of Adhesion Barrier into Peritoneal Cavity, Open Approach (ICD-10-PCS; 2019-02-03)
DX: K57.20 Diverticulitis of large intestine with perforation and abscess without bleeding (principal); K65.1 Peritoneal abscess; K63.2 Fistula of intestine; F17.210 Nicotine dependence, cigarettes, uncomplicated; E11.9 Type 2 diabetes mellitus without complications; E78.00 Pure hypercholesterolemia, unspecified; F31.9 Bipolar disorder, unspecified; Z92.3 Personal history of irradiation; E55.9 Vitamin D deficiency, unspecified; Z79.84 Long term (current) use of oral hypoglycemic drugs; Z79.899 Other long term (current) drug therapy
CPT/HCPCS: 36415; 36416; 49020; 71275; 72192; 74177; 77002; 80048; 80053; 81001; 81003; 81015; 83690; 84484; 85025; 85610; 85730; 86850; 86900; 86901; 87070; 87077; 87186; 87205; 88307; 93005; 96361; 96365; 96375; C1729; C1758; C1769; J0131; J0670; J1170; J1650; J1815; J1885; J2001; J2250; J2270; J2405; J2543; J2550; J2704; J3010; J3490; Q9961; Q9966; Q9968; S0028

== ENCOUNTER 2019-02-11 07:08 | Inpatient (IN) | payer BC ==
[2019-02-11] MEDS ORDERED: Ondansetron PF 4 MG/2 ML Vial ONE (07:30)
[2019-02-11] MEDS ORDERED: Morphine 4 MG/ML VIAL ONE ×2 (07:30→13:29)
[2019-02-11 07:51] LABS: #Eosinphils 0.2 thou/uL (0.0-0.7); #Lymphocytes 0.6 thou/uL (1.20-3.40); #Monocytes 1.4 thou/uL (0.11-0.59); #Neutrophils 16.8 thou/uL (1.40-6.50); %Eosinophils 0.8 % (0.0-10.0); %Monocytes 7.6 % (0.0-10.0); %Neutrophils 88.5 % (42.0-75.0); Hemoglobin 10.3 g/dL (14.0-18.0); Mean Corpuscular HGB CONC 31.6 g/dL (32.0-36.0); Mean Corpuscular Hemoglobin 28.1 pg (27.0-31.0); Mean Corpuscular Volume 88.8 fL (78.0-98.0); Mean Platelet Volume 6.4 fL (7.4-10.4); Platelet Count 733 thou/uL (130-400); Red Blood Cell (RBC) Count 3.66 mill/uL (4.70-6.10); White Blood Cell (WBC) Count 18.9 thou/uL (4.8-10.8)
--- NOTE | 2019-02-11 08:10 | CT ---
CT Abdomen Pelvis W Con History: [Abdominal pain. Diverticulitis and abscess.] Comparison: CT abdomen and pelvis January 27, 2019 Findings: Moderate layering bilateral pleural effusions. No pericardial effusion. There is moderate free intraperitoneal gas and fluid. There is abnormal hyperenhancement peritoneum s uggesting infected fluid. There is a new left lower quadrant ostomy. Small volume gas within the urinary bladder. New suture of the rectosigmoid junction. The liver and spleen are unremarkable. Aortic contour is nonaneurysmal. Reactive retroperitoneal maida aortic adenopathy. Gallbladder is distended. No acute osseous normality. Impression: 1. New large volume free intraperitoneal fluid with flocculated gas with abnormal hyper enhancement o f the peritoneum concerning for a rectal stump leak. 2. Small soft tissue mass measuring 1.9 cm just anterior to the rectum axial image 75 concerning for abnormal lymph node. Close attention on follow-up imaging is recommended.
[2019-02-11 08:12] LABS: ALT (SGPT) 40 U/L (8-55); AST (SGOT) 32 U/L (5-34); Alkaline Phosphatase 375 U/L (40-150); Anion Gap 13 mmol/L (10-20); BUN (Urea Nitrogen) 8 mg/dL (8.4-25.7); Bilirubin, Total 0.6 mg/dL (0.2-1.2); Calc. Creatinine Clearance 0 mL/min (70-130); Calcium 9.1 mg/dL (7.8-10.44); Carbon Dioxide 28 mmol/L (22-29); Chloride 99 mmol/L (98-107); Estimated GFR-MDRD Greater than 90; Globulin 3.5 g/dL (2.4-3.5); Glucose 118 mg/dL (70-105); Potassium 3.9 mmol/L (3.5-5.1); Protein, Total 6.5 g/dL (6.0-8.3); Sodium 136 mmol/L (136-145)
[2019-02-11] MEDS ORDERED: Piperacillin/Tazobactam 4.5 GM VIAL ONE (08:29)
[2019-02-11 08:34] LABS: Bilirubin Negative (Negative); Blood, Urine Small (Negative); Clarity CLEAR (Clear); Glucose, Urine (Dipstick) Negative (Negative); Leukocyte Small (Negative); Nitrite Negative (Negative); Protein, Urine (Dipstick) Negative (Neg-Trace); Specific Gravity, Urine 1.021 (1.002-1.036); Urobilinogen 0.2 mg/dL (0.2-1.0); pH, Urine 7.5 (5.0-9.0)
[2019-02-11 08:35] LABS: Bacteria/HPF None Seen HPF (None Seen); Hyaline Casts/LPF 0-3 HYALINE CAST LPF (0-3 Hyaline); Pathc Cast-AUWi Flag 0.13 (0-2.49); RBC/HPF 0-3 HPF (0-3); Squamous Epithelial 0-3 HPF (0-3)
[2019-02-11] MEDS ORDERED: ISOVUE-370 76%-LOCM 1 ML ONE (09:38)
--- NOTE | 2019-02-11 10:59 | HP ---
HISTORY OF PRESENT ILLNESS: A 58-year-old male patient, who had a very large, 12 to 14 cm diverticular abscess. We underwent percutaneous drainage unsuccessful and required laparotomy, drainage of large abscess, resection of left colon, mobilization of splenic flexure on 02/03/2019. He had a Melanie pouch colostomy formation. He was discharged home on 02/07/2019. He called the answering service last night, 02/10/2019. reporting decreased colostomy output and leg edema. Family was reassured, but they were encouraged to come to the emergency room if he had worsening symptoms such as nausea, vomiting, wound problems, or fever. This morning, the patient had a copious drainage from his lower midline wound. He had had segmental staple closure of the skin with Telfa maria isabel incisional VAC and we expected some drainage, but not this volume. The patient was evaluated by Dr. Adams in the emergency room. His white count noted to be 18, hemoglobin 10, white count differential normal. Electrolytes were unremarkable. Glucose 118. He was afebrile. Blood pressure, heart rate normal. He underwent a CAT scan of the abdomen and pelvis, revealing free intraabdominal air. Perhaps expected are maybe more than expected 8 days postoperatively, but not completely unexpected. There was a fluid collection in the pelvis suggestive of possible rectal stump disruption. Clinical bedside evaluation reveals that he has segmental skin closure with purulent drainage copious at a lower wound. Probing with a Q-tip reveals fascial dehiscence. Plan at this time is laparotomy, abdominal washout, closure of fascial dehiscence, evaluate rectal stump blowout. He understands risks and benefits and consents. We will plan admission postoperatively with abdominal wound VAC after definitive wound closure. He has antecubital left IV and we will plan to place a better IV or central line pending abilities in the operating room. ALLERGIES: NONE. SOCIAL HISTORY: Tobacco, 1/2 to 1 pack per day. Alcohol, none. PAST SURGICAL HISTORY: Noncontributory except as mentioned above. 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 On last hospitalization, he had ureteral stents placed by Dr. Miles and postoperatively, the patient had hematuria, probably related to radiation cystitis and the abscess of pelvis. This resolved. In the bedside ER, he has voided clear urine without gross hematuria. This has not been an issue since he left the hospital. REVIEW OF SYSTEMS: Noncontributory. PHYSICAL EXAMINATION: VITAL SIGNS: Blood pressure 144/69, pulse 117, respiratory rate 26, temperature 99 degrees, and weight 54 kg. HEAD, EARS, EYES, NOSE, AND THROAT: Unremarkable. LUNGS: Clear to auscultation. No wheezing. CARDIAC: Regular rate and rhythm without murmur or gallop. ABDOMEN: Soft, nondistended, and tender in all quadrants, especially lower quadrants. More than expected postoperatively segmental staple closures in midline wound with gaps in between. He has copious purulent drainage in his lower midline wound with probing of the fascia with Q-tip indicating fascial disruption. ASSESSMENT AND PLAN: 1. Peritonitis, possible rectal stump blowout. We will evaluate intraoperatively. Abdominal washout, closure of wound dehiscence, abdominal wound VAC application. He understands risks, benefits, and consents. 2. Diabetes mellitus. 3. Tobacco abuse. 4. Status post eight days ago drainage of large diverticular abscess, splenic flexure mobilization, and left colon resection, and colostomy. The patient has significant constipation on his CAT scan. We will treat that, that is probably the reason his ostomy output has been decreased. Job ID: [id number]
[2019-02-11] MEDS ORDERED: Ondansetron ODT 4 MG TAB PO PRN (11:01)
[2019-02-11] MEDS ORDERED: hydrALAZINE 20 MG/ML VIAL SLOW IVP PRN (11:01)
[2019-02-11] MEDS ORDERED: Morphine 4 MG/ML VIAL SLOW IVP PRN ×2 (11:01)
[2019-02-11] MEDS ORDERED: Dextrose 50% Abboject 50 ML SYRINGE SLOW IVP PRN (11:01)
[2019-02-11] MEDS ORDERED: Dextrose 5% in Water 1,000 ML IV PRN (11:01)
[2019-02-11] MEDS ORDERED: Lorazepam 2 MG/ML VIAL SLOW IVP PRN ×2 (11:01→18:41)
[2019-02-11] MEDS ORDERED: Ondansetron PF 4 MG/2 ML Vial IVP PRN (11:01)
[2019-02-11] MEDS ORDERED: Ondansetron ODT 8 MG TAB SL PRN (11:06)
[2019-02-11] MEDS ORDERED: Acetaminophen 1,000 MG in Premix Bag 1 BAG IVPB PRN ×2 (11:06→18:27)
[2019-02-11] MEDS ORDERED: Piperacillin/Tazobactam 3.375 GM VIAL ONE (13:29)
[2019-02-11] MEDS ORDERED: Sodium Chloride 0.9% 100 ML ONE (13:30)
[2019-02-11] MEDS ORDERED: Fentanyl 100 MCG/2 ML VIAL ONE ×2 (15:44→16:11)
[2019-02-11] MEDS ORDERED: Lidocaine 2% Jelly 5 ML TUBE ONE (16:11)
[2019-02-11] MEDS ORDERED: Ventilator Sedation Protocol 1 EACH FS SCH (18:30)
[2019-02-11] MEDS ORDERED: Propofol 1,000 MG/100 ML VIAL IV ONE (18:31)
--- NOTE | 2019-02-11 18:37 | OP ---
DATE OF PROCEDURE: 02/11/2019 PREOPERATIVE DIAGNOSES: 1. Postoperative left colon resection. 2. Splenic flexure mobilization. 3. Melanie pouch. 4. Colostomy with rectal stump leaking. 5. Purulent peritonitis. 6. Wound dehiscence. POSTOPERATIVE DIAGNOSES: 1. Postoperative left colon resection. 2. Splenic flexure mobilization. 3. Melanie pouch. 4. Colostomy with rectal stump leaking. 5. Purulent peritonitis. 6. Wound dehiscence. PROCEDURES PERFORMED: 1. Reopening of recent laparotomy. 2. Abdominal washout. 3. Closure of rectal stump. 4. ABThera open abdomen. 5. Left subclavian vein central line. ANESTHESIA: General. ESTIMATED BLOOD LOSS: Less than 10 mL. DESCRIPTION OF PROCEDURE: The patient was taken to the operating room, where under general anesthesia. Ross balloon was placed in the lower rectum. Balloon inflated to 30 mL. Ross catheter was placed at the beginning of the procedure and left in at the end. Abdominal dressings and colostomy appliance were removed. Abdomen was prepared with ChloraPrep and draped in routine fashion. All band sequestered the colostomy. Midline wound was opened by blunt dissection. The lower skin was opened with purulent drainage and focus of fascial dehiscence and purulent drainage. The Prolene sutures were removed. There was purulent material in the abdominal cavity in all quadrants and gutters. This was thoroughly irrigated, evacuated using copious saline irrigation. Rectal stump was inspected with air insufflating the rectal stump to the Ross catheter and there was noted to be an air leak in the left lateral staple line and disrupted. Continuous suture to and fro a 2-0 Prolene used to close this. It was rechecked and there was no leak. Abdominal cavity was thoroughly irrigated with saline solution. Fibrinous purulent exudate debris was removed. Sponge and needle counts were correct. An ABThera was placed and secured and colostomy appliance was secured. Gloves and gowns were changed and the hands washed. Sterile technique used to place a left subclavian vein central line, Seldinger technique, securing it with 3-0 silk suture, sterile dressing. Each port aspirated blood, flushed with saline solution. The patient tolerated the procedure well. Job ID: [id number]
[2019-02-11] MEDS ORDERED: Morphine 2 MG/ML SYRINGE SLOW IVP PRN (18:41)
[2019-02-11] MEDS ORDERED: Fentanyl BOLUS 250 ML IVPB PRN (18:41)
[2019-02-11] MEDS ORDERED: DISCONTINUE PREVIOUS NARCOTIC PAIN MEDICATIONS AND BENZODIAZEPINES FS SCH (18:41)
[2019-02-11] MEDS ORDERED: Propofol BOLUS 1,000 MG/100 ML VIAL IV PRN (18:41)
[2019-02-11 19:15] LABS: Actual Bicarbonate (HCO3a) 22.5 mEq/L (22-28); Base Excess (BEa) -1.9 mEq/L (-2.0 to +3.0); CO2 Tension 36.9 mmHg (35.0-45.0); Calcium, Ionized 1.09 mmol/L (1.12-1.30); Carboxyhemoglobin (COHb) 0.7 gm% (0.0-3.0); Hemoglobin (Hb) 9.9 g/dL (14.0-18.0); O2 Tension (PaO2) 282.7 mmHg (80.0-100.0); Potassium - ABG Lab 3.85 mmol/L (3.70-5.30)
[2019-02-11 19:19] LABS: ALV-art Gradient -43.625 (0-20); Puncture Site RBR
[2019-02-11] MEDS: Lactated Ringer's 1,000 ML IV SCH ×2 (19:19→21:11)
[2019-02-11] MEDS: Piperacillin/Tazobactam 4.5 GM in Sodium Chloride 0.9% 100 ML IVPB SCH ×3 (19:20→21:12)
--- NOTE | 2019-02-11 19:36 | RAD ---
RADIOGRAPH CHEST 1 VIEW: DATE: 02/11/2019 TIME: 7:23 PM HISTORY: Central line placement COMPARISON: 10/14/2017 FINDINGS: The following life-support lines have been placed: Endotracheal tube distal tip 1 cm superior to ari. Esophagogastric tube with side-port in left upper quadrant, presumably in proximal stomach. Left subclavian central line distal tip overlying right atrium. New finding of mild haziness in right lower lung zone. No pulmonary edema. No cardiomegaly. No pneumo thorax identified although it is uncertain whether this is an upright or supine image. IMPRESSION: 1. Endotracheal tube distal tip 1 cm from ari. This should be retracted approximately 2 to 3 cm. 2. Left subclavian central venous catheter. 3. Enteric catheter in stomach.
[2019-02-11] MEDS: fentaNYL Citrate/PF 2,000 MCG in Sodium Chloride 0.9% 60 ML IV SCH (20:04)
[2019-02-11] MEDS: Enoxaparin Sodium 40 MG/0.4 ML SYRINGE SC SCH (20:13)
[2019-02-12] MEDS: Ketorolac Tromethamine 30 MG/ML VIAL IVP PRN ×2 (00:18→05:18)
[2019-02-12] MEDS: Piperacillin/Tazobactam 4.5 GM in Sodium Chloride 0.9% 100 ML IVPB SCH ×4 (02:17→19:55)
[2019-02-12] MEDS: Propofol 1,000 MG/100 ML VIAL IV PRN ×2 (02:20→18:09)
[2019-02-12] MEDS ORDERED: Lactated Ringer's 1,000 ML IV SCH ×2 (03:45→08:15)
[2019-02-12] MEDS: Lactated Ringer's 1,000 ML IV SCH ×3 (04:12→17:27)
[2019-02-12 05:19] LABS: ALT (SGPT) 19 U/L (8-55); AST (SGOT) 15 U/L (5-34); Albumin 1.9 g/dL (3.5-5.0); Alkaline Phosphatase 195 U/L (40-150); Anion Gap 13 mmol/L (10-20); BUN (Urea Nitrogen) 9 mg/dL (8.4-25.7); Bilirubin, Total 0.6 mg/dL (0.2-1.2); Calc. Creatinine Clearance 87 mL/min (70-130); Calcium 7.4 mg/dL (7.8-10.44); Carbon Dioxide 23 mmol/L (22-29); Chloride 105 mmol/L (98-107); Estimated GFR-MDRD Greater than 90; Globulin 2.3 g/dL (2.4-3.5); Glucose 97 mg/dL (70-105); Potassium 3.9 mmol/L (3.5-5.1); Protein, Total 4.2 g/dL (6.0-8.3); Sodium 137 mmol/L (136-145)
[2019-02-12 06:40] LABS: #Eosinphils 0.1 thou/uL (0.0-0.7); #Lymphocytes 0.7 thou/uL (1.20-3.40); #Monocytes 1.5 thou/uL (0.11-0.59); #Neutrophils 14.1 thou/uL (1.40-6.50); %Basophils 0.2 % (0.0-1.0); %Eosinophils 0.5 % (0.0-10.0); %Monocytes 8.9 % (0.0-10.0); %Neutrophils 86.4 % (42.0-75.0); Hemoglobin 7.6 g/dL (14.0-18.0); Mean Corpuscular Hemoglobin 28.9 pg (27.0-31.0); Mean Corpuscular Volume 87.6 fL (78.0-98.0); Mean Platelet Volume 7.2 fL (7.4-10.4); Platelet Count 473 thou/uL (130-400); Platelet Morphology Comment Appears Adequate; RBC Distribution Width 12.9 % (11.5-14.5); Red Blood Cell (RBC) Count 2.62 mill/uL (4.70-6.10); White Blood Cell (WBC) Count 16.3 thou/uL (4.8-10.8)
[2019-02-12 06:41] LABS: Actual Bicarbonate (HCO3a) 25.8 mEq/L (22-28); Base Excess (BEa) 3.1 mEq/L (-2.0 to +3.0); CO2 Tension 31.6 mmHg (35.0-45.0); Calcium, Ionized 1.05 mmol/L (1.12-1.30); Carboxyhemoglobin (COHb) 2.3 gm% (0.0-3.0); Hemoglobin (Hb) 7.7 g/dL (14.0-18.0); O2 Tension (PaO2) 118.3 mmHg (80.0-100.0); Potassium - ABG Lab 3.72 mmol/L (3.70-5.30); pH, Arterial 7.53 (7.35-7.45)
[2019-02-12 06:42] LABS: Puncture Site RRA
[2019-02-12] MEDS: Pantoprazole 40 MG VIAL IVP SCH (07:46)
--- NOTE | 2019-02-12 08:07 | RAD ---
XR Chest 1 View Portable History: [Ventilated patient] Comparison: Radiograph prior day Findings: [Central venous catheter tip is at the right atrium. Endotracheal tube tip above the ari proximal a 3 cm. Enteric tube tip in good position. Small effusions. Improved aeration of lungs. No pneumothorax. Impression: Improved lung aeration.
[2019-02-12] MEDS: Albumin 25% 25 GM/100 ML BOT IVPB SCH ×3 (08:47→18:09)
--- NOTE | 2019-02-12 15:50 | PRG ---
DATE OF SERVICE: 02/12/2019 SUBJECTIVE: Nabor Manning is doing well today. He did have low blood pressure this morning, had a hemoglobin of 7, was given 2 units of blood, albumin, and fluid bolus, and his blood pressures remained stable through the day. OBJECTIVE: VITAL SIGNS: Temperature 98.6 degrees, blood pressure 119/53, heart rate 85. LUNGS: Clear to auscultation. CARDIAC: Regular rate and rhythm without murmur or gallop. ABDOMEN: Soft, ABThera in place. LABORATORY DATA: Gastric drainage 300 overnight. Urine output 405. White count 16, hemoglobin 7.6. Basic metabolic profile is normal. ASSESSMENT/PLAN: Anemia. He has been given 2 units of blood. We will recheck his hemoglobin tonight and in the morning. We will plan abdominal washout, hopefully definitive closure of his abdomen tomorrow as well as placement of pelvic drain. Continue with ventilator and sedation for now. Job ID: [id number]
[2019-02-12 18:12] LABS: #Eosinphils 0.3 thou/uL (0.0-0.7); #Lymphocytes 0.7 thou/uL (1.20-3.40); #Monocytes 1.2 thou/uL (0.11-0.59); #Neutrophils 12.4 thou/uL (1.40-6.50); %Basophils 0.3 % (0.0-1.0); %Lymphocytes 5.1 % (21.0-51.0); %Neutrophils 84.7 % (42.0-75.0); Hemoglobin 9.5 g/dL (14.0-18.0); Mean Corpuscular HGB CONC 33.8 g/dL (32.0-36.0); Mean Corpuscular Hemoglobin 29.8 pg (27.0-31.0); Mean Corpuscular Volume 88.1 fL (78.0-98.0); Mean Platelet Volume 6.7 fL (7.4-10.4); Platelet Count 442 thou/uL (130-400); RBC Distribution Width 12.9 % (11.5-14.5); White Blood Cell (WBC) Count 14.6 thou/uL (4.8-10.8)
[2019-02-12] MEDS: fentaNYL Citrate/PF 2,000 MCG in Sodium Chloride 0.9% 60 ML IV SCH (18:58)
[2019-02-12] MEDS: Enoxaparin Sodium 40 MG/0.4 ML SYRINGE SC SCH (20:02)
[2019-02-13] MEDS: Albumin 25% 25 GM/100 ML BOT IVPB SCH ×3 (00:40→11:44)
[2019-02-13] MEDS: Lactated Ringer's 1,000 ML IV SCH ×4 (00:40→22:15)
--- NOTE | 2019-02-13 02:17 | CON ---
DATE OF CONSULTATION: 02/12/2019 HISTORY OF PRESENT ILLNESS: Mr. Manning is a 58-year-old gentleman. I am told he is functional, but it is unclear how functional prior to the onset of his illness. Apparently, had a big diverticular abscess and underwent percutaneous drainage per Dr. Vargas's discussion with me. On February 03, a resection of his left colon and a Melanie pouch colostomy. He presented with decreased colostomy output and lower extremity swelling. He started draining out of his wound and subsequently presented and went to the operating room. He had free air on presentation. He had a rectal stump dehiscence. He is in the Critical Care Unit, mechanically ventilated. It is anticipated that he will have a washout and perhaps closure tomorrow. PAST MEDICAL HISTORY: Remarkable for; 1. Diabetes. 2. Lipid disorder. 3. History of prostate cancer with radiation. 4. History of ureteral stents in the past. 5. History of radiation cystitis. 6. Diverticular disease. FAMILY HISTORY: Negative for lung disease in early age. SOCIAL HISTORY: He is a smoker. Nondrinker. ALLERGIES: HE REPORTS NO DRUG ALLERGIES. REVIEW OF SYSTEMS: Not obtainable since he is intubated. PHYSICAL EXAMINATION: VITAL SIGNS: Blood pressure 122/58, heart rate 81, respiratory rates in the teens. HEENT: Pupils react. Sclerae anicteric. NECK: Supple. No lymphadenopathy. LUNGS: Clear anteriorly. HEART: Regular rhythm, S1 and S2 are normal. ABDOMEN: Soft and open with a dressing. EXTREMITIES: Without edema. DIAGNOSTIC DATA: Chest x-ray shows no alveolar infiltrates. IMPRESSION: Status post laparotomy for peritonitis. PLAN: Continue mechanical ventilation until he is felt to be done with his abdominal washouts and stable from a pulmonary standpoint. He did receive blood this morning, moving his hemoglobin over 7.6 to 9.5. His electrolytes are unremarkable. PH of 7.53, pCO2 of 31, pO2 of 118. We will continue current mechanical ventilation. CRITICAL CARE TIME: 30 minutes. Job ID: [id number] MTDD
[2019-02-13] MEDS: Piperacillin/Tazobactam 4.5 GM in Sodium Chloride 0.9% 100 ML IVPB SCH ×4 (03:53→22:09)
[2019-02-13 05:27] LABS: ALT (SGPT) 19 U/L (8-55); AST (SGOT) 17 U/L (5-34); Albumin 3.2 g/dL (3.5-5.0); Alkaline Phosphatase 279 U/L (40-150); Anion Gap 12 mmol/L (10-20); BUN (Urea Nitrogen) 8 mg/dL (8.4-25.7); Bilirubin, Total 1.3 mg/dL (0.2-1.2); Calc. Creatinine Clearance 87 mL/min (70-130); Calcium 8.3 mg/dL (7.8-10.44); Carbon Dioxide 27 mmol/L (22-29); Chloride 105 mmol/L (98-107); Estimated GFR-MDRD Greater than 90; Globulin 1.9 g/dL (2.4-3.5); Glucose 101 mg/dL (70-105); Potassium 3.6 mmol/L (3.5-5.1); Protein, Total 5.1 g/dL (6.0-8.3); Sodium 140 mmol/L (136-145)
[2019-02-13] MEDS: Propofol 1,000 MG/100 ML VIAL IV PRN ×2 (06:07→22:20)
[2019-02-13 06:13] LABS: Band 6 % (5-11); Eosinophils 4 % (0-10); Hemoglobin 9.2 g/dL (14.0-18.0); Lymphocytes 6 % (21-51); MDiff Complete? YES; Mean Corpuscular HGB CONC 33.3 g/dL (32.0-36.0); Mean Corpuscular Hemoglobin 29.6 pg (27.0-31.0); Mean Platelet Volume 6.8 fL (7.4-10.4); Monocytes 6 % (0-10); Neutrophil 78 % (42-75); Platelet Count 442 thou/uL (130-400); RBC Distribution Width 13.1 % (11.5-14.5); Red Blood Cell (RBC) Count 3.11 mill/uL (4.70-6.10); White Blood Cell (WBC) Count 13.4 thou/uL (4.8-10.8)
[2019-02-13 06:42] LABS: Actual Bicarbonate (HCO3a) 24.8 mEq/L (22-28); Base Excess (BEa) 0.4 mEq/L (-2.0 to +3.0); CO2 Tension 39.2 mmHg (35.0-45.0); Calcium, Ionized 1.11 mmol/L (1.12-1.30); Carboxyhemoglobin (COHb) 1.2 gm% (0.0-3.0); Hemoglobin (Hb) 9.7 g/dL (14.0-18.0); O2 Tension (PaO2) 104.2 mmHg (80.0-100.0); Potassium - ABG Lab 3.68 mmol/L (3.70-5.30); pH, Arterial 7.42 (7.35-7.45)
[2019-02-13 06:43] LABS: Puncture Site RRA
--- NOTE | 2019-02-13 08:15 | RAD ---
CHEST 1 VIEW: HISTORY: Respiratory insufficiency. Patient on ventilator. FINDINGS: Life support tubes remain in place. Again noted is some bilateral vascular congestion and probable s mall pleural effusions and patchy perihilar parenchymal changes. IMPRESSION: Persistent possibly slightly progressive bilateral vascular congestion and increased pleural and pare nchymal opacity markings in the bases. Continued short-term followup. POS: TPC
[2019-02-13] MEDS: Pantoprazole 40 MG VIAL IVP SCH (09:14)
--- NOTE | 2019-02-13 09:18 | PRG ---
DATE OF SERVICE: 02/13/2019 SUBJECTIVE: Remains intubated in the vent. He is to go for a washout this morning. His chest x-ray shows no acute infiltrates. His vital signs appear to be stable. OBJECTIVE: VITAL SIGNS: Saturations 99%, blood pressure 130/58, . CHEST: Decreased breath sounds. No wheezing. CARDIAC: Normal S1 and S2. No gallops. ABDOMEN: No masses. LABORATORY DATA: White count H and H 9 and 23, platelet count is normal. Lytes are normal. Abdomen is low at 3.2. Blood culture, gram-negative luis. PO2 of 104, pCO2 of 39, pH 7.42. ASSESSMENT: 1. Status post laparoscopy, colonic abscess. 2. Respiratory failure, severe deconditioning, poor nutritional status. PLAN: Wean when stable. No further surgical procedures. In the meantime, supportive care PT. One-half hour of critical time. Job ID: [id number]
--- NOTE | 2019-02-13 09:45 | PRG ---
DATE OF SERVICE: 02/13/2019 SUBJECTIVE: Nabor Manning is doing well today. He is on the ventilator. He is awake and communicating nonverbally. OBJECTIVE: VITAL SIGNS: Blood pressure 138/58, heart rate 64. Gastric drainage 200 mL in 24 hours. Urine output 1375 in 24 hours. LUNGS: Clear to auscultation. CARDIAC: Regular rate and rhythm without murmur or gallop. ABDOMEN: Soft, flat, ABThera in place. Colostomy healthy. EXTREMITIES: Unremarkable. LABORATORY DATA: White count 13 and hemoglobin 9.2. Sodium 140, potassium 3.6, BUN 8, creatinine 0.71, bilirubin slightly elevated at 1.3, and alkaline phosphatase 279. ASSESSMENT AND PLAN: 1. Open abdomen. We will plan abdominal washout after closure of rectal stump leak. Hopefully, we can definitively close his abdomen and place a wound VAC on his abdomen and a pelvic drain, and then after this operation, can initiate ventilatory weaning. He should be able to wean fairly quickly. His chest x-ray looks good. Pulmonary status is baseline normal. We will leave that to Pulmonary Medicine. 2. Colostomy status, status post rectal stump leak and peritonitis. 3. History of pelvic abscess, diverticular. Job ID: [id number]
[2019-02-13] MEDS ORDERED: PROPOFOL 200 MG/20 ML VIAL ONE (10:23)
[2019-02-13] MEDS ORDERED: Rocuronium Bromide 10 MG/ML (10ML VIAL) ONE ×2 (10:23→11:59)
[2019-02-13] MEDS ORDERED: Lidocaine 1% PF 5 ML VIAL ONE (10:23)
[2019-02-13] MEDS ORDERED: Succinylcholine Chloride 20 MG/ML 10 ml SYRINGE FS ONE (10:23)
[2019-02-13] MEDS ORDERED: Phenylephrine HCL 10 MG/ML VIAL ONE (10:23)
--- NOTE | 2019-02-13 13:58 | PRG ---
DATE OF SERVICE: 02/13/2019 SUBJECTIVE: Nabor Manning is doing well. He is on the ventilator. Awaiting abdominal washout and definitive abdominal wall closure for rectal stump leak. He opens his eyes to voice and responds appropriately. OBJECTIVE: VITAL SIGNS: Heart rate 60 and blood pressure 136/61. NG tube output 200 and Ross output 1375 after 24 hours. LABORATORY DATA: This morning, his white count is 13 and hemoglobin 9.2. Basic metabolic profile normal. ASSESSMENT AND PLAN: 1. Rectal stump leak and open abdomen. Plan abdominal washout and definitive closure today. We will leave a pelvic drain. 2. Respiratory failure. Hopefully, we can wean the ventilator fairly quickly after closure of his abdomen. 3. Colostomy status, status post drainage of refractory pelvic abscess and sigmoid colon resection. Job ID: [id number]
--- NOTE | 2019-02-13 15:45 | PQF ---
CLINICAL DOCUMENTATION IMPROVEMENT CLARIFICATION FORM: ICD-10 Updated PLEASE DO AN ADDENDUM TO THE PROGRESS NOTE WITH ANY DOCUMENTATION UPDATES OR ADDITIONS AND CARRY THROUGH TO DC SUMMARY. THANK YOU. DATE: 02/13/2019 ATTN: Dr. Vargas Please exercise your independent, professional judgment in responding to the clarification form. Clinical indicators are provided on the bottom of this form for your review Please check appropriate box(s): [ ] Acute blood loss anemia [ ] Post-op anemia related to acute blood loss [ ] Other diagnosis __chronic Anemia [ ] Unable to determine In addition, please specify: Present on Admission (POA): [ yes ] Yes [ ] No [ ] Unable to determine For continuity of documentation, please document condition throughout progress notes and discharge summary. Thank You. CLINICAL INDICATORS - SIGNS / SYMPTOMS / LABS LAB 02/11: Hgb 10.3 02/12 (Sam) He did have low blood pressure this morning hemoglobin 7.6 Anemia. RISKS: Op Report 02/11: Colostomy with rectal stump leaking. Purulent peritonitis. Wound dehiscence. Reopening of recent laparotomy. Abdominal washout. Closure of rectal stump. TREATMENT: 02/12 (Sam) He has been given 2 units of blood. We will recheck his hemoglobin tonight and in the morning. Thank you, Nathaly (This form is maintained as a part of the permanent medical record) 2014 [employer]. All Rights Reserved Nathaly Eisenberg RN, BSN [email or web address] Office: [phone] [facility]ITALCon[facility]
[2019-02-13] MEDS ORDERED: Fentanyl 100 MCG/2 ML VIAL ONE (19:45)
[2019-02-13] MEDS ORDERED: Midazolam HCl 2 mg/2 ml Vial ONE (19:45)
[2019-02-13] MEDS ORDERED: Albumin 25% 100 ML ONE (20:59)
--- NOTE | 2019-02-13 21:36 | OP ---
DATE OF PROCEDURE: 02/13/2019 PREOPERATIVE DIAGNOSES: Diverticular abscess, rectal stump blowout, peritonitis with open abdomen. POSTOPERATIVE DIAGNOSES: Diverticular abscess, rectal stump blowout, peritonitis with open abdomen. PROCEDURES PERFORMED: Planned reopening staged laparotomy with abdominal washout and closure of fascia, and placement of a 19 gold RONEY drain. ANESTHESIA: General. DESCRIPTION OF PROCEDURE: The patient was taken to the operating room where under general anesthesia, ABThera was removed and abdomen prepared with Betadine and draped in routine fashion. Abdominal cavity irrigated, irrigant evacuated, 3 L saline was used. No feculent or purulent material was noted. Bowel was healthy. A #19 gold RONEY drain brought out through a right lateral abdominal incision, secured with 3-0 nylon suture and drain placed in the pelvis. Fascia approximated with continuous suture of #1 PDS. Once this was complete, the skin approximated in the midline around and about the umbilicus with debra. Otherwise, wound left open for healing by secondary intention with a wound VAC applied. The patient tolerated the procedure well without complications. Ostomy appliance secured. Job ID: [id number]
[2019-02-13] MEDS: Enoxaparin Sodium 40 MG/0.4 ML SYRINGE SC SCH (22:15)
[2019-02-13] MEDS: fentaNYL Citrate/PF 2,000 MCG in Sodium Chloride 0.9% 60 ML IV SCH (22:28)
[2019-02-14] MEDS: Piperacillin/Tazobactam 4.5 GM in Sodium Chloride 0.9% 100 ML IVPB SCH ×4 (03:18→21:00)
[2019-02-14] MEDS: Lactated Ringer's 1,000 ML IV SCH ×3 (04:39→14:16)
[2019-02-14 04:48] LABS: #Eosinphils 0.1 thou/uL (0.0-0.7); #Lymphocytes 0.7 thou/uL (1.20-3.40); #Monocytes 1.3 thou/uL (0.11-0.59); %Basophils 0.1 % (0.0-1.0); %Eosinophils 0.5 % (0.0-10.0); %Monocytes 7.5 % (0.0-10.0); %Neutrophils 87.9 % (42.0-75.0); Hemoglobin 9.4 g/dL (14.0-18.0); Mean Corpuscular HGB CONC 32.6 g/dL (32.0-36.0); Mean Corpuscular Volume 89.1 fL (78.0-98.0); Mean Platelet Volume 6.9 fL (7.4-10.4); Platelet Count 541 thou/uL (130-400); RBC Distribution Width 13.2 % (11.5-14.5); Red Blood Cell (RBC) Count 3.22 mill/uL (4.70-6.10)
[2019-02-14 05:10] LABS: ALT (SGPT) 18 U/L (8-55); AST (SGOT) 18 U/L (5-34); Albumin 3.3 g/dL (3.5-5.0); Alkaline Phosphatase 314 U/L (40-150); Anion Gap 12 mmol/L (10-20); BUN (Urea Nitrogen) 7 mg/dL (8.4-25.7); Bilirubin, Total 1.2 mg/dL (0.2-1.2); Calc. Creatinine Clearance 101 mL/min (70-130); Calcium 8.4 mg/dL (7.8-10.44); Carbon Dioxide 27 mmol/L (22-29); Chloride 105 mmol/L (98-107); Estimated GFR-MDRD Greater than 90; Globulin 1.8 g/dL (2.4-3.5); Glucose 104 mg/dL (70-105); Potassium 3.7 mmol/L (3.5-5.1); Protein, Total 5.1 g/dL (6.0-8.3); Sodium 140 mmol/L (136-145)
--- NOTE | 2019-02-14 07:54 | RAD ---
Chest one view HISTORY: Dyspnea. Follow-up. COMPARISON: 02/13/2019. FINDINGS: Cardiac silhouette is magnified by projection. Pulmonary vasculature is more engorged with widespread ill-defined interstitial and alveolar opacity. Hazy opacity at each base has the appearance of pleural fluid. Mediastinum is midline. Lines and tubes appear unchanged in position. No evidence of pneumothorax. Ca rdiac monitor leads overlie the chest. IMPRESSION: Interval radiographic worsening of pulmonary vascular congestion and pleural fluid.
[2019-02-14 08:03] LABS: Actual Bicarbonate (HCO3a) 25.4 mEq/L (22-28); Base Excess (BEa) 1.5 mEq/L (-2.0 to +3.0); CO2 Tension 37.7 mmHg (35.0-45.0); Calcium, Ionized 1.12 mmol/L (1.12-1.30); Carboxyhemoglobin (COHb) 1.7 gm% (0.0-3.0); Hemoglobin (Hb) 10.5 g/dL (14.0-18.0); O2 Tension (PaO2) 74.7 mmHg (80.0-100.0); Potassium - ABG Lab 3.78 mmol/L (3.70-5.30); pH, Arterial 7.45 (7.35-7.45)
[2019-02-14 08:04] LABS: Puncture Site RB
[2019-02-14 08:05] LABS: ALV-art Gradient 92.075 (0-20)
[2019-02-14] MEDS ORDERED: DC Sedation Protocol FS ONE (09:09)
--- NOTE | 2019-02-14 09:12 | PRG ---
DATE OF SERVICE: 02/14/2019 SUBJECTIVE: Nabor Manning is a 58-year-old gentleman, intubated on the vent. He went yesterday for closure of his abdominal wound. He had diverticular abscess, rectal stump blowout, peritonitis, open abdomen. He is on the vent this morning. He is awake, alert, and responsive, having significant pain. OBJECTIVE: VITAL SIGNS: Blood pressure 141/62, pulse 105, respirations 18, saturations 90%. GENERAL: Awake, alert, and responsive. He moves all 4 extremities. CHEST: Decreased breath sounds. No wheezing. CARDIAC: Normal S1 and S2. No gallops or masses. LABORATORY DATA: White count is 17,000, H and H 9 and 28, platelet count is normal. PO2 is 74, pCO2 is 37, pH is 7.45. Lytes are normal. He has gram-negative rods in his blood culture and Enterococcus faecalis in his abdomen. IMAGING STUDIES: Chest x-ray shows otherwise bilateral pleural effusion, increased interstitial markings. IMPRESSION: 1. Respiratory failure. 2. Status post laparotomy. 3. Peritonitis. 4. Severe deconditioning. 5. Encephalopathy. PLAN: Consider weaning and extubation today if no surgery is planned. Broad-spectrum antibiotics as per General Surgery, Zosyn. Supportive care, PT. We will follow. One-half hour of critical time. Job ID: [id number]
[2019-02-14] MEDS: Pantoprazole 40 MG VIAL IVP SCH (09:31)
--- NOTE | 2019-02-14 10:29 | PQF ---
CLINICAL DOCUMENTATION IMPROVEMENT CLARIFICATION FORM: ICD-10 Updated PLEASE DO AN ADDENDUM TO THE PROGRESS NOTE WITH ANY DOCUMENTATION UPDATES OR ADDITIONS AND CARRY THROUGH TO DC SUMMARY. THANK YOU. DATE: 02/14/2019; 02/15/2019 ; 02/20/2019 ATTN: Dr. Vargas Please exercise your independent, professional judgment in responding to the clarification form. Clinical indicators are provided on the bottom of this form for your review Please check appropriate box(es): [yes ] Sepsis due to: (Colostomy w/ rectal stump leaking, Purulent peritonitis , Wound dehiscence, etc.) [ ] Sepsis due to other: [ ] Severe sepsis with acute organ dysfunction of: (Examples: respiratory failure, encephalopathy, other) [ ] Localized infection without sepsis [ ] Other diagnosis [ ] Unable to determine In addition, please specify: Present on Admission (POA): [yes ] Yes [ ] No [ ] Unable to determine For continuity of documentation, please document condition throughout progress notes and discharge summary. Thank You. CLINICAL INDICATORS - SIGNS / SYMPTOMS / LABS ER RECORD 02/11: BP 144/69 Pulse 117 Resp 26 Temp 99.0 DX: Sepsis H&P 02/11: His white count noted to be 18 02/14(Garcia) He has gram-negative rods in his blood culture and Enterococcus faecalis in his abdomen RISKS: H&P: S/p 8 days ago drainage of large diverticular abscess, splenic flexure mobilization, and left colon resection and colostomy. Diabetes mellitus. OP Note 02/11: Colostomy with rectal stump leaking. Purulent peritonitis. Wound dehiscence TREATMENT: OP NOte 02/11: Abdominal washout. Closure of rectal stump. NOV 09: Zosyn 4.5 gm IVPB Q6H NOV 09: Lactated Ringer's IV 150 mls/hr 6 hr 40 min Thank you, Nathaly (This form is maintained as a part of the permanent medical record) 2014 [employer]. All Rights Reserved Nathaly Eisenberg RN, BSN [email or web address] Office: [phone] [facility]
[2019-02-14] MEDS: Morphine 4 MG/ML VIAL SLOW IVP PRN ×2 (10:46→19:13)
[2019-02-14] MEDS: Ketorolac Tromethamine 30 MG/ML VIAL IVP PRN ×2 (12:43→21:33)
--- NOTE | 2019-02-14 16:23 | PRG ---
DATE OF SERVICE: 02/14/2019 SUBJECTIVE: Mr. Manning is in ICU. He has been extubated this morning. He is doing well. He is awake and alert. OBJECTIVE: VITAL SIGNS: Temperature 97.9, blood pressure 122/57, heart rate 86. NG tube in place 150 mL postoperative, urine output 740 mL. LUNGS: Clear to auscultation. CARDIAC: Regular rate and rhythm without murmur or gallop. ABDOMEN: Soft. Occasional bowel sounds. Nondistended. Colostomy healthy. Wound VAC in place. EXTREMITIES: Unremarkable. White count 17, hemoglobin 9.4. Basic metabolic profile normal. ASSESSMENT/PLAN: 1. Status post rectal stump leak with RONEY drain, draining serosanguineous. Hemoglobin remained stable. We will continue intravenous antibiotics for now. We will leave NG tube and Ross. He has been extubated. Mobilize into a chair. 2. Continue mobility. Anticipate, move to the surgical floor tomorrow. 3. Initiate TPN due to malnutrition and decreased caloric intake. Job ID: [id number]
[2019-02-14] MEDS: Enoxaparin Sodium 40 MG/0.4 ML SYRINGE SC SCH (21:00)
[2019-02-14] MEDS ORDERED: [UNRECOGNIZED DRUG - OTHER] IV SCH (22:00)
[2019-02-14] MEDS ORDERED: SODIUM ACETATE IV SCH (22:00)
[2019-02-14] MEDS ORDERED: FAT EMULSION IV SCH (22:00)
[2019-02-14] MEDS ORDERED: POTASSIUM ACETATE IV SCH (22:00)
[2019-02-15] MEDS: HumaLOG 300 UNITS/3 ML VIAL SC PRN ×3 (00:42→12:19)
[2019-02-15] MEDS: Morphine 4 MG/ML VIAL SLOW IVP PRN ×6 (00:45→22:20)
[2019-02-15] MEDS: Lactated Ringer's 1,000 ML IV SCH ×2 (00:49→09:36)
[2019-02-15] MEDS: Piperacillin/Tazobactam 4.5 GM in Sodium Chloride 0.9% 100 ML IVPB SCH ×4 (03:04→20:56)
[2019-02-15 04:40] LABS: #Eosinphils 0.4 thou/uL (0.0-0.7); #Monocytes 1.4 thou/uL (0.11-0.59); #Neutrophils 12.2 thou/uL (1.40-6.50); %Basophils 0.1 % (0.0-1.0); %Eosinophils 2.7 % (0.0-10.0); %Lymphocytes 6.5 % (21.0-51.0); %Monocytes 9.4 % (0.0-10.0); %Neutrophils 81.2 % (42.0-75.0); Hemoglobin 9.5 g/dL (14.0-18.0); Mean Corpuscular HGB CONC 32.2 g/dL (32.0-36.0); Mean Corpuscular Hemoglobin 28.9 pg (27.0-31.0); Mean Corpuscular Volume 89.7 fL (78.0-98.0); Mean Platelet Volume 6.8 fL (7.4-10.4); Platelet Count 650 thou/uL (130-400); RBC Distribution Width 13.5 % (11.5-14.5); Red Blood Cell (RBC) Count 3.28 mill/uL (4.70-6.10)
[2019-02-15 04:57] LABS: Phosphorus 1.8 mg/dL (2.3-4.7)
[2019-02-15 05:00] LABS: ALT (SGPT) 18 U/L (8-55); AST (SGOT) 22 U/L (5-34); Albumin 3.1 g/dL (3.5-5.0); Alkaline Phosphatase 274 U/L (40-150); Anion Gap 12 mmol/L (10-20); BUN (Urea Nitrogen) 9 mg/dL (8.4-25.7); Bilirubin, Total 0.8 mg/dL (0.2-1.2); Calc. Creatinine Clearance 107 mL/min (70-130); Calcium 8.4 mg/dL (7.8-10.44); Carbon Dioxide 29 mmol/L (22-29); Chloride 105 mmol/L (98-107); Estimated GFR-MDRD Greater than 90; Globulin 2.3 g/dL (2.4-3.5); Glucose 187 mg/dL (70-105); Magnesium 1.8 mg/dL (1.6-2.6); Potassium 3.5 mmol/L (3.5-5.1); Protein, Total 5.4 g/dL (6.0-8.3); Sodium 142 mmol/L (136-145)
[2019-02-15] MEDS ORDERED: SODIUM CHLORIDE 0.9% IVPB SCH (06:00)
[2019-02-15] MEDS ORDERED: SODIUM PHOSPHATE IVPB SCH (06:00)
[2019-02-15] MEDS ORDERED: Lactated Ringer's 1,000 ML IV SCH (07:33)
[2019-02-15] MEDS: Ketorolac Tromethamine 30 MG/ML VIAL IVP PRN ×3 (07:41→20:55)
[2019-02-15] MEDS: Pantoprazole 40 MG VIAL IVP SCH (07:42)
--- NOTE | 2019-02-15 07:56 | PRG ---
DATE OF SERVICE: 02/15/2019 SUBJECTIVE: Mr. Manning is in the ICU. Plans were to move him out today, but; however, he is short of breath. Slightly dyspneic. He is having a breathing treatment. He is on TPN at 24-hour rate and IV fluids at 50 mL/hour. OBJECTIVE: VITAL SIGNS: Heart rate 85, blood pressure 146/77, respiratory rate 25. CARDIAC: Regular rate and rhythm. PULMONARY: Expiratory wheezing, coarse breath sounds at both bases, worse on the left. ABDOMEN: Soft. Bowel sounds present. Colostomy healthy. No significant output. EXTREMITIES: No edema. Homans negative. LABORATORY DATA: White count 15,000, hemoglobin 9.5. Basic metabolic profile is normal. Glucose 187. His magnesium is normal. Phosphorus is low and has been replaced. ASSESSMENT AND PLAN: 1. The patient is having some expiratory wheezing and rhonchi, and slightly tachypneic. We will hold transfer to the floor. His Ross has been removed. We will plan to give him 40 mg of Lasix IV and monitor him in the ICU today to assure that his lungs remain stable and improved. 2. He has bowel sounds. He is not having nausea or vomiting. He has not had any colostomy output. Continue sips and chips. 3. Malnutrition, continue TPN. 4. Low phosphorus. I have replaced. We will repeat level in the morning. 5. Colostomy status with history of diverticular abscess, status post rectal stump leak, open abdomen, ABThera, recent closure of abdominal wall, definitively without plans to return to the operating room. Job ID: [id number]
[2019-02-15] MEDS ORDERED: Furosemide 40 MG/4 ML VIAL SLOW IVP SCH (08:00)
--- NOTE | 2019-02-15 08:01 | RAD ---
PORTABLE CHEST: Date: 02/15/19 PROVIDED CLINICAL HISTORY: Dyspnea. COMPARISON: 02/14/19. FINDINGS: Interval extubation and removal of enteric catheter. Persistent left subclavian central line in simil ar position. Bibasilar pleural parenchymal opacities are redemonstrated. Mild improvement in vascular congestion. No evidence for pneumothorax. IMPRESSION: Persistent bibasilar pleural parenchymal opacity. POS: OFF
--- NOTE | 2019-02-15 09:08 | PRG ---
DATE OF SERVICE: 02/15/2019 SUBJECTIVE: This morning, he is awake, alert, and responsive, though he remains weak. OBJECTIVE: VITAL SIGNS: His blood pressure is 146/77, O2 sat is 96% on 2 L, respirations 25, pulse 75. I's and O's are ahead. CHEST: Reveals bilateral rhonchi and crackles. CARDIAC: Normal S1, S2. No gallop. ABDOMEN: No masses. LABORATORY DATA: BNP is elevated around 300. White count 15,000, platelet count is normal. IMPRESSION: Status post lap, severe deconditioning, respiratory failure, may be fluid overloaded. PLAN: Continue Zosyn, supportive care, pain relief, TPN. We will follow. Job ID: [id number]
[2019-02-15] MEDS: Furosemide 40 MG/4 ML VIAL SLOW IVP SCH (13:41)
[2019-02-15 18:38] LABS: Anion Gap 12 mmol/L (10-20); BUN (Urea Nitrogen) 12 mg/dL (8.4-25.7); Calc. Creatinine Clearance 0 mL/min (70-130); Calcium 8.8 mg/dL (7.8-10.44); Carbon Dioxide 33 mmol/L (22-29); Chloride 99 mmol/L (98-107); Estimated GFR-MDRD Greater than 90; Glucose 154 mg/dL (70-105); Potassium 3.3 mmol/L (3.5-5.1); Sodium 141 mmol/L (136-145)
[2019-02-15] MEDS: Enoxaparin Sodium 40 MG/0.4 ML SYRINGE SC SCH (20:55)
[2019-02-15] MEDS: [UNRECOGNIZED DRUG - OTHER] IV SCH (22:21)
[2019-02-15] MEDS: POTASSIUM ACETATE IV SCH (22:21)
[2019-02-15] MEDS: SODIUM ACETATE IV SCH (22:21)
[2019-02-15] MEDS: FAT EMULSION IV SCH (22:21)
[2019-02-16] MEDS: Piperacillin/Tazobactam 4.5 GM in Sodium Chloride 0.9% 100 ML IVPB SCH ×4 (02:30→20:28)
[2019-02-16] MEDS: Ketorolac Tromethamine 30 MG/ML VIAL IVP PRN (03:27)
[2019-02-16 04:43] LABS: #Eosinphils 0.8 thou/uL (0.0-0.7); #Lymphocytes 1.1 thou/uL (1.20-3.40); #Neutrophils 9.1 thou/uL (1.40-6.50); %Basophils 0.3 % (0.0-1.0); %Eosinophils 6.8 % (0.0-10.0); %Monocytes 8.1 % (0.0-10.0); %Neutrophils 75.8 % (42.0-75.0); Hemoglobin 9.4 g/dL (14.0-18.0); Mean Corpuscular HGB CONC 31.1 g/dL (32.0-36.0); Mean Corpuscular Hemoglobin 28.3 pg (27.0-31.0); Mean Corpuscular Volume 91.2 fL (78.0-98.0); Mean Platelet Volume 7.2 fL (7.4-10.4); Platelet Count 689 thou/uL (130-400); RBC Distribution Width 13.7 % (11.5-14.5); Red Blood Cell (RBC) Count 3.32 mill/uL (4.70-6.10)
[2019-02-16 04:59] LABS: Anion Gap 10 mmol/L (10-20); BUN (Urea Nitrogen) 15 mg/dL (8.4-25.7); Calc. Creatinine Clearance 0 mL/min (70-130); Calcium 8.5 mg/dL (7.8-10.44); Carbon Dioxide 34 mmol/L (22-29); Chloride 101 mmol/L (98-107); Estimated GFR-MDRD Greater than 90; Glucose 121 mg/dL (70-105); Magnesium 1.7 mg/dL (1.6-2.6); Potassium 3.7 mmol/L (3.5-5.1); Sodium 141 mmol/L (136-145)
[2019-02-16 05:02] LABS: Phosphorus 1.8 mg/dL (2.3-4.7)
[2019-02-16] MEDS ORDERED: SODIUM CHLORIDE 0.9% IVPB SCH (06:00)
[2019-02-16] MEDS ORDERED: SODIUM PHOSPHATE IVPB SCH (06:00)
[2019-02-16] MEDS: Morphine 4 MG/ML VIAL SLOW IVP PRN (06:20)
[2019-02-16] MEDS: Furosemide 40 MG/4 ML VIAL SLOW IVP SCH ×2 (06:25→14:08)
[2019-02-16] MEDS ORDERED: Sodium Phosphate 30 MMOL in Sodium Chloride 0.9% 250 ML 250 ML IVPB SCH (07:00)
[2019-02-16] MEDS ORDERED: Acetaminophen 500 MG TAB PO PRN (08:13)
[2019-02-16] MEDS ORDERED: Ibuprofen 600 MG TAB PO PRN (08:13)
[2019-02-16] MEDS ORDERED: Sodium Chloride 0.9% (PF) 10 ML VIAL FS PRN (09:00)
[2019-02-16] MEDS: metFORMIN 500 MG TAB PO SCH (09:23)
[2019-02-16] MEDS: Pantoprazole 40 MG VIAL IVP SCH (09:23)
[2019-02-16] MEDS: traMADol HCl 50 MG TAB PO PRN ×3 (09:30→22:33)
--- NOTE | 2019-02-16 09:37 | PRG ---
DATE OF SERVICE: 02/16/2019 SUBJECTIVE: This morning, still on TPN. Remains in the ICU, status post lap. Severe deconditioning. OBJECTIVE: VITAL SIGNS: Saturations 100% on 2 L, pules 69, respiratory rate 22, and blood pressure 140/68. CHEST: Decreased breath sounds. No wheezing. CARDIAC: Normal S1, S2. No gallops. ABDOMEN: No masses. LABORATORY DATA: His lytes are normal. White count 12,000, H and H 9 and 30. IMPRESSION: 1. Status post lap, multiple. 2. Respiratory failure. 3. Chronic obstructive pulmonary disease. 4. Severe deconditioning. PLAN: He can be transferred out of the ICU to surgical floor. Pulmonary will follow. Job ID: [id number]
--- NOTE | 2019-02-16 09:58 | PRG ---
DATE OF SERVICE: 02/16/2019 SUBJECTIVE: Mr. Manning is doing well today. He is breathing much easier. No longer dyspneic. He is in the ICU. He has had a remarkable diuresis in response to Lasix 40 mg twice a day IV. 3730 mL per 24 hours. He is tolerated his Ross catheter out. He is urinating independently. Ostomy is making some flatus, but no stool. He does not have any nausea or vomiting and he is hungry. LABORATORY DATA: Sodium 141, potassium 3.7, BUN 15, creatinine 0.61, and phosphorus 1.8 again, as it was yesterday, even after replacement yesterday. He has been ordered 2 parenteral boluses of sodium phosphate. We will recheck that later today and in the morning. His white count is 12 down from 16 on 02/12. Hemoglobin is stable at 9.4. OBJECTIVE: LUNGS: Clear to auscultation. No wheezing. No rhonchi. CARDIAC: Regular rate and rhythm without murmur or gallop. ABDOMEN: Soft and nondistended. Excellent bowel sounds. Healthy colostomy flatus in the bag. No stool. EXTREMITIES: Unremarkable. ASSESSMENT AND PLAN: Status post Melanie procedure with colostomy for large 14 cm diverticular abscess, readmitted for rectal stump leak with peritonitis, undergoing treatment with abdominal washout, ABThera placement. Definitive closure is at his abdomen. He has suffered fluid overload and was diuresed, resolving his dyspnea problems. Currently, he is doing well. We will advance him to full liquids. Replace his phosphorus and recheck that. We will not check another CBC. Considering his diuresis. We will recheck basic met in the morning. We will increase his activities. Transfer him to surgical floor. Encourage incentive spirometer use. Ask case coordinator to arrange outpatient wound VAC care per his preference, preferably [facility] outpatient wound care appointment versus home health nursing wound care. Expect him to follow up in office [address] Herzog is covering for the next 7 days. The patient is on TPN, and if he tolerates his diet, this could be discontinued in the morning. We will advance him to a diabetic diet and resume his metformin soon. Accu-Cheks 150 to 95. Job ID: [id number]
[2019-02-16 18:28] LABS: Phosphorus 2.8 mg/dL (2.3-4.7)
[2019-02-16] MEDS: Enoxaparin Sodium 40 MG/0.4 ML SYRINGE SC SCH (20:28)
[2019-02-16] MEDS: risperiDONE 1 MG TAB PO SCH (20:29)
[2019-02-16] MEDS: Rosuvastatin 10 MG TAB PO SCH (20:29)
[2019-02-16] MEDS: SODIUM ACETATE IV SCH (22:26)
[2019-02-16] MEDS: FAT EMULSION IV SCH (22:26)
[2019-02-16] MEDS: POTASSIUM ACETATE IV SCH (22:26)
[2019-02-16] MEDS: [UNRECOGNIZED DRUG - OTHER] IV SCH (22:26)
[2019-02-17] MEDS: Piperacillin/Tazobactam 4.5 GM in Sodium Chloride 0.9% 100 ML IVPB SCH ×4 (01:29→20:11)
[2019-02-17 05:27] LABS: #Eosinphils 0.9 thou/uL (0.0-0.7); #Lymphocytes 1.1 thou/uL (1.20-3.40); #Monocytes 0.9 thou/uL (0.11-0.59); #Neutrophils 8.5 thou/uL (1.40-6.50); %Basophils 0.3 % (0.0-1.0); %Eosinophils 8.2 % (0.0-10.0); %Lymphocytes 9.7 % (21.0-51.0); %Monocytes 8.1 % (0.0-10.0); %Neutrophils 73.7 % (42.0-75.0); Hemoglobin 9.8 g/dL (14.0-18.0); Mean Corpuscular HGB CONC 31.3 g/dL (32.0-36.0); Mean Corpuscular Hemoglobin 28.1 pg (27.0-31.0); Mean Corpuscular Volume 89.8 fL (78.0-98.0); Mean Platelet Volume 6.9 fL (7.4-10.4); Platelet Count 714 thou/uL (130-400); RBC Distribution Width 13.7 % (11.5-14.5); Red Blood Cell (RBC) Count 3.47 mill/uL (4.70-6.10); White Blood Cell (WBC) Count 11.6 thou/uL (4.8-10.8)
[2019-02-17 05:41] LABS: Anion Gap 8 mmol/L (10-20); BUN (Urea Nitrogen) 17 mg/dL (8.4-25.7); Calc. Creatinine Clearance 0 mL/min (70-130); Calcium 8.9 mg/dL (7.8-10.44); Carbon Dioxide 33 mmol/L (22-29); Chloride 99 mmol/L (98-107); Estimated GFR-MDRD Greater than 90; Glucose 99 mg/dL (70-105); Phosphorus 2.3 mg/dL (2.3-4.7); Sodium 136 mmol/L (136-145)
[2019-02-17] MEDS: Furosemide 40 MG/4 ML VIAL SLOW IVP SCH ×2 (06:38→14:28)
[2019-02-17] MEDS: traMADol HCl 50 MG TAB PO PRN ×2 (07:16→13:37)
[2019-02-17] MEDS: metFORMIN 500 MG TAB PO SCH (08:43)
[2019-02-17] MEDS: Pantoprazole 40 MG VIAL IVP SCH (08:43)
--- NOTE | 2019-02-17 09:38 | PRG ---
DATE OF SERVICE: 02/17/2019 SUBJECTIVE: This morning, he is doing well. No pain. No shortness of breath. OBJECTIVE: VITAL SIGNS: Saturations are 98% on room air, respirations 20, temperature 97, pulse 80, blood pressure . CHEST: Decreased breath sounds. No wheezing. CARDIAC: Normal S1, S2. No gallops. ABDOMEN: No masses. IMPRESSION: Respiratory failure, status post laparotomy, chronic obstructive pulmonary disease, severe deconditioning. PLAN: Continue neb treatments, PT, supportive care. Nutrition as per Surgery. Job ID: [id number]
[2019-02-17] MEDS: Morphine 4 MG/ML VIAL SLOW IVP PRN ×3 (10:26→18:43)
[2019-02-17] MEDS: risperiDONE 1 MG TAB PO SCH (20:11)
[2019-02-17] MEDS: Rosuvastatin 10 MG TAB PO SCH (20:12)
[2019-02-17] MEDS: Enoxaparin Sodium 40 MG/0.4 ML SYRINGE SC SCH (20:12)
[2019-02-17] MEDS: FAT EMULSION IV SCH (22:02)
[2019-02-17] MEDS: [UNRECOGNIZED DRUG - OTHER] IV SCH (22:02)
[2019-02-17] MEDS: SODIUM ACETATE IV SCH (22:02)
[2019-02-17] MEDS: POTASSIUM ACETATE IV SCH (22:02)
[2019-02-18] MEDS: Piperacillin/Tazobactam 4.5 GM in Sodium Chloride 0.9% 100 ML IVPB SCH ×4 (02:07→20:11)
[2019-02-18] MEDS: Furosemide 40 MG/4 ML VIAL SLOW IVP SCH ×2 (06:32→15:01)
[2019-02-18] MEDS: Pantoprazole 40 MG VIAL IVP SCH (08:08)
[2019-02-18] MEDS: metFORMIN 500 MG TAB PO SCH (08:08)
[2019-02-18] MEDS: traMADol HCl 50 MG TAB PO PRN ×3 (08:08→20:18)
--- NOTE | 2019-02-18 13:16 | PRG ---
DATE OF SERVICE: 02/18/2019 SUBJECTIVE: Mr. Manning is doing very well and has no acute complaints. OBJECTIVE: VITAL SIGNS: His temperature is 98.1, pulse 90, respirations 16, O2 saturation 96% on room air, and blood pressure 107/67. HEENT: Unremarkable. NECK: No JVD. CHEST: Clear to auscultation. CARDIAC: S1 and S2, regular. ABDOMEN: Postsurgical changes are noted. EXTREMITIES: No edema. ASSESSMENT: 1. Status post respiratory failure, requiring endotracheal intubation and mechanical ventilation. 2. Status post laparotomy. 3. Chronic obstructive pulmonary disease. 4. Deconditioning. PLAN: Continue neb treatments and oxygen as needed. Dr. Garcia will see again on Wednesday. Job ID: [id number]
[2019-02-18] MEDS: Morphine 4 MG/ML VIAL SLOW IVP PRN (15:01)
--- NOTE | 2019-02-18 15:04 | EKG ---
Test Reason : Blood Pressure : / mmHG Vent. Rate : 117 BPM Atrial Rate : 117 BPM P-R Int : 126 ms QRS Dur : 078 ms QT Int : 316 ms P-R-T Axes : 072 086 050 degrees QTc Int : 440 ms Sinus tachycardia Otherwise normal ECG Confirmed by BEBETO AVILES ([id number]), senior technical editor SHASHANK CARRANZA ([id number]) on 02/18/2019 3:04:05 PM Referred By: Confirmed By:BEBETO AVILES
[2019-02-18] MEDS: Enoxaparin Sodium 40 MG/0.4 ML SYRINGE SC SCH (20:10)
[2019-02-18] MEDS: Rosuvastatin 10 MG TAB PO SCH (20:11)
[2019-02-18] MEDS: risperiDONE 1 MG TAB PO SCH (20:11)
--- NOTE | 2019-02-18 22:10 | PDOC.GSPN ---
Surgery Progress Note: Subj - Subjective Narrative: Patient feels good today. He has had to empty his colostomy bag twice. He denies any nausea or vomiting. His pain is controlled. There is liquid stool in his bag. Drain output is serosanguineous. Assessment/plan: Status post Kulkarni's procedure for diverticulitis with large abscess, with postoperative rectal stump leak requiring repeat surgery for washout and drainage. His bowel function has returned and his colostomy is functioning well. His RONEY output is minimal and clear. I will advance his diet to regular. We will likely remove the RONEY drain and discharge him home with home health for wound care and colostomy support in the next day or 2. Surgery Progress Note: Obj - Vital signs Vital signs: Vital Signs - Most Recent Temp Pulse Resp BP Pulse Ox 98.2 F 90 20 103/70 97 02/18/19 19:59 02/18/19 19:59 02/18/19 19:59 02/18/19 19:59 02/18/19 19:59 Surgery Progress Note: Results - Labs Result Diagrams: 02/17/19 05:10 02/17/19 05:10 Lab results: Laboratory Results - last 24 hr 02/18/19 02/18/19 18:36 20:40 POC Glucose 117 H 109
[2019-02-19] MEDS: Piperacillin/Tazobactam 4.5 GM in Sodium Chloride 0.9% 100 ML IVPB SCH ×4 (01:34→20:54)
[2019-02-19 05:07] LABS: ALT (SGPT) 33 U/L (8-55); AST (SGOT) 25 U/L (5-34); Albumin 3.5 g/dL (3.5-5.0); Alkaline Phosphatase 237 U/L (40-150); Anion Gap 13 mmol/L (10-20); BUN (Urea Nitrogen) 24 mg/dL (8.4-25.7); Bilirubin, Total 0.5 mg/dL (0.2-1.2); Calc. Creatinine Clearance 88 mL/min (70-130); Calcium 9.1 mg/dL (7.8-10.44); Carbon Dioxide 28 mmol/L (22-29); Chloride 99 mmol/L (98-107); Estimated GFR-MDRD Greater than 90; Globulin 3.2 g/dL (2.4-3.5); Glucose 91 mg/dL (70-105); Phosphorus 2.2 mg/dL (2.3-4.7); Potassium 4.2 mmol/L (3.5-5.1); Protein, Total 6.7 g/dL (6.0-8.3); Sodium 136 mmol/L (136-145)
[2019-02-19] MEDS: Pantoprazole 40 MG VIAL IVP SCH (09:12)
[2019-02-19] MEDS: metFORMIN 500 MG TAB PO SCH (09:12)
[2019-02-19] MEDS: traMADol HCl 50 MG TAB PO PRN (09:55)
--- NOTE | 2019-02-19 15:45 | PDOC.GSPN ---
Surgery Progress Note: Subj - Subjective Narrative: Patient is feeling well. He tolerated his regular diet and his colostomy is working well. His has undergone colostomy training. RONEY has minimal output hasn't been emptied in a couple days. Abdomen is soft and nondistended. VAC dressing is in place. Assessment/plan: Status post Kulkarni's procedure doing well. RONEY has minimal output and will be discontinued today. If we can arrange home health for VAC changes there is a possibility he could be discharged home today. Otherwise, I expect that he will be ready for discharge tomorrow Surgery Progress Note: Obj - Vital signs Vital signs: Vital Signs - Most Recent Temp Pulse Resp BP Pulse Ox 98.1 F 83 14 101/60 96 02/19/19 11:34 02/19/19 11:34 02/19/19 11:34 02/19/19 11:34 02/19/19 11:34 Surgery Progress Note: Results - Labs Result Diagrams: 02/17/19 05:10 02/19/19 04:10 Lab results: Laboratory Results - last 24 hr 02/19/19 02/19/19 02/19/19 04:10 04:10 06:00 Sodium 136 Potassium 4.2 Chloride 99 Carbon Dioxide 28 Anion Gap 13 BUN 24 Creatinine 0.73 Estimated GFR (MDRD) Greater than 90 Glucose 91 POC Glucose 89 Calcium 9.1 Phosphorus 2.2 L Total Bilirubin 0.5 AST 25 ALT 33 Alkaline Phosphatase 237 H Serum Total Protein 6.7 Albumin 3.5 Globulin 3.2 Albumin/Globulin Ratio 1.1 L Prealbumin 16.0 L 02/19/19 11:35 Sodium Potassium Chloride Carbon Dioxide Anion Gap BUN Creatinine Estimated GFR (MDRD) Glucose POC Glucose 111 H Calcium Phosphorus Total Bilirubin AST ALT Alkaline Phosphatase Serum Total Protein Albumin Globulin Albumin/Globulin Ratio Prealbumin
[2019-02-19] MEDS: risperiDONE 1 MG TAB PO SCH (20:55)
[2019-02-19] MEDS: Enoxaparin Sodium 40 MG/0.4 ML SYRINGE SC SCH (20:56)
[2019-02-19] MEDS: Rosuvastatin 10 MG TAB PO SCH (20:56)
[2019-02-20] MEDS: Piperacillin/Tazobactam 4.5 GM in Sodium Chloride 0.9% 100 ML IVPB SCH ×3 (02:36→14:53)
[2019-02-20] MEDS: Pantoprazole 40 MG VIAL IVP SCH (09:30)
[2019-02-20] MEDS: metFORMIN 500 MG TAB PO SCH (09:30)
[2019-02-20] MEDS: traMADol HCl 50 MG TAB PO PRN (09:55)
[2019-02-20 12:29] VITALS: BMI 20.7
[2019-02-20 15:46] VITALS: BP 113/61; TEMP 98.1
--- NOTE | 2019-02-20 15:47 | PRG ---
DATE OF SERVICE: 02/20/2019 SUBJECTIVE: Events over the last week have been reviewed. He actually looks great compared to when I last saw him over a week ago. He is in no distress. His only complaint is weakness. OBJECTIVE: VITAL SIGNS: He is afebrile. Heart rate 83, respiratory rate 14, oximetry is 96% on room air, blood pressure 119/63. He denies having any issues with shortness of breath prior to this illness. LUNGS: Clear. HEART: Regular rhythm. ABDOMEN: Soft. EXTREMITIES: Without asymmetry. IMPRESSION: 1. Status post mechanical ventilation after a laparotomy for peritonitis requiring serial washouts. 2. Underlying reported history of COPD, but no clinical symptoms suggestive of COPD based on my conversation with him today. 3. Deconditioning, which is probably one of the biggest issue facing him at this time. 4. Status post mechanical ventilation, clinically doing well. 5. He says he wants to get out of here, so he can go back to work. 6. We will continue to follow. Job ID: [id number]
== END 2019-02-20 18:45 | DRG 853 ==
LOC: ERS 07:08 → SDC 13:15 → CCU 17:31 → SURG B 02-16 11:43
PROVIDERS: ADMIT Specialist; ATTEND Specialist
PROC: 0DQP0ZZ Repair Rectum, Open Approach (ICD-10-PCS; principal; 2019-02-11)
PROC: 0WQF0ZZ Repair Abdominal Wall, Open Approach (ICD-10-PCS; 2019-02-11)
PROC: 02H633Z Insertion of Infusion Device into Right Atrium, Percutaneous Approach (ICD-10-PCS; 2019-02-11)
PROC: 30233N1 Transfusion of Nonautologous Red Blood Cells into Peripheral Vein, Percutaneous Approach (ICD-10-PCS; 2019-02-12)
PROC: 0WJG0ZZ Inspection of Peritoneal Cavity, Open Approach (ICD-10-PCS; 2019-02-13)
PROC: 5A1945Z Respiratory Ventilation, 24-96 Consecutive Hours (ICD-10-PCS; 2019-02-13)
DX: A41.9 Sepsis, unspecified organism (principal); K65.0 Generalized (acute) peritonitis; J96.00 Acute respiratory failure, unspecified whether with hypoxia or hypercapnia; J95.812 Postprocedural air leak; G93.40 Encephalopathy, unspecified; E46 Unspecified protein-calorie malnutrition; K94.03 Colostomy malfunction; K94.02 Colostomy infection; T81.31XA Disruption of external operation (surgical) wound, not elsewhere classified, initial encounter; E11.9 Type 2 diabetes mellitus without complications; F17.210 Nicotine dependence, cigarettes, uncomplicated; E78.00 Pure hypercholesterolemia, unspecified; D64.9 Anemia, unspecified; J44.9 Chronic obstructive pulmonary disease, unspecified; R53.81 Other malaise; Z85.46 Personal history of malignant neoplasm of prostate; Z92.3 Personal history of irradiation; Z68.20 Body mass index [BMI] 20.0-20.9, adult; Y83.3 Surgical operation with formation of external stoma as the cause of abnormal reaction of the patient, or of later complication, without mention of misadventure at the time of the procedure; Y83.8 Other surgical procedures as the cause of abnormal reaction of the patient, or of later complication, without mention of misadventure at the time of the procedure
CPT/HCPCS: 36415; 36416; 36430; 71045; 74177; 80048; 80053; 81003; 81015; 82805; 83605; 83735; 83880; 84100; 84134; 85025; 86850; 86900; 86901; 87040; 87070; 87076; 87077; 87149; 87186; 87205; 93005; 94002; 94003; 94640; 96361; 96365; 96375; A4217; C9113; J1650; J1815; J1885; J1940; J2001; J2060; J2250; J2270; J2370; J2405; J2543; J2704; J3010; J3475; J3480; J3490; J7050; J7620; P9016; P9047; Q9966

== ENCOUNTER 2019-05-17 13:56 | Outpatient (CLI) | payer BC ==
[2019-05-17 16:54] LABS: #Basophils 0.1 thou/uL (0.0-0.2); #Eosinphils 0.1 thou/uL (0.0-0.7); #Lymphocytes 1.8 thou/uL (1.20-3.40); #Monocytes 0.7 thou/uL (0.11-0.59); #Neutrophils 4.5 thou/uL (1.40-6.50); %Basophils 0.7 % (0.0-1.0); %Eosinophils 1.3 % (0.0-10.0); %Lymphocytes 25.3 % (21.0-51.0); %Monocytes 9.4 % (0.0-10.0); %Neutrophils 63.3 % (42.0-75.0); Hemoglobin 13.3 g/dL (14.0-18.0); Mean Corpuscular HGB CONC 32.8 g/dL (32.0-36.0); Mean Corpuscular Hemoglobin 30.3 pg (27.0-31.0); Mean Corpuscular Volume 92.4 fL (78.0-98.0); Mean Platelet Volume 7.7 fL (7.4-10.4); Platelet Count 259 thou/uL (130-400); RBC Distribution Width 12.4 % (11.5-14.5); Red Blood Cell (RBC) Count 4.38 mill/uL (4.70-6.10); White Blood Cell (WBC) Count 7.1 thou/uL (4.8-10.8)
[2019-05-17 17:16] LABS: ALT (SGPT) 11 U/L (8-55); AST (SGOT) 12 U/L (5-34); Albumin 4.3 g/dL (3.5-5.0); Alkaline Phosphatase 77 U/L (40-150); Anion Gap 7 mmol/L (10-20); BUN (Urea Nitrogen) 16 mg/dL (8.4-25.7); Bilirubin, Total 0.3 mg/dL (0.2-1.2); Calc. Creatinine Clearance 0 mL/min (70-130); Calcium 9.1 mg/dL (7.8-10.44); Carbon Dioxide 29 mmol/L (22-29); Chloride 102 mmol/L (98-107); Estimated GFR-MDRD 81; Globulin 2.8 g/dL (2.4-3.5); Glucose 99 mg/dL (70-105); Potassium 4.3 mmol/L (3.5-5.1); Protein, Total 7.1 g/dL (6.0-8.3); Sodium 134 mmol/L (136-145)
== END 2019-05-17 13:57 | disposition home or self-care (01) ==
LOC: LABBT 13:56
PROVIDERS: ATTEND Specialist
DX: Z01.818 Encounter for other preprocedural examination (principal); Z93.3 Colostomy status
CPT/HCPCS: 80053; 85025

== ENCOUNTER 2019-05-26 09:53 | Outpatient (CLI) | payer BC ==
[2019-05-26 13:37] LABS: #Basophils 0.1 thou/uL (0.0-0.2); #Eosinphils 1.1 thou/uL (0.0-0.7); #Lymphocytes 1.3 thou/uL (1.20-3.40); #Monocytes 0.6 thou/uL (0.11-0.59); #Neutrophils 6.3 thou/uL (1.40-6.50); %Basophils 0.8 % (0.0-1.0); %Eosinophils 11.4 % (0.0-10.0); %Lymphocytes 13.6 % (21.0-51.0); %Monocytes 6.8 % (0.0-10.0); %Neutrophils 67.4 % (42.0-75.0); Hemoglobin 14.8 g/dL (14.0-18.0); Mean Corpuscular HGB CONC 33.3 g/dL (32.0-36.0); Mean Corpuscular Hemoglobin 29.4 pg (27.0-31.0); Mean Corpuscular Volume 88.5 fL (78.0-98.0); Mean Platelet Volume 7.5 fL (7.4-10.4); Platelet Count 268 thou/uL (130-400); RBC Distribution Width 12.9 % (11.5-14.5); Red Blood Cell (RBC) Count 5.03 mill/uL (4.70-6.10); White Blood Cell (WBC) Count 9.3 thou/uL (4.8-10.8)
[2019-05-26 13:57] LABS: Anion Gap 14 mmol/L (10-20); BUN (Urea Nitrogen) 14 mg/dL (8.4-25.7); Calc. Creatinine Clearance 0 mL/min (70-130); Calcium 10.6 mg/dL (7.8-10.44); Carbon Dioxide 27 mmol/L (22-29); Chloride 103 mmol/L (98-107); Estimated GFR-MDRD 90; Glucose 85 mg/dL (70-105); Hemoglobin A1c 5.3 % (4.0-6.0); Potassium 4.4 mmol/L (3.5-5.1); Sodium 140 mmol/L (136-145)
== END 2019-05-26 09:54 | disposition home or self-care (01) ==
LOC: LABBT 09:53
PROVIDERS: ATTEND Specialist
DX: Z01.818 Encounter for other preprocedural examination (principal); Z93.3 Colostomy status
CPT/HCPCS: 80048; 83036; 85025; 93005; 93010

== ENCOUNTER 2019-05-31 08:48 | Inpatient (IN) | payer BC ==
--- NOTE | 2019-05-02 00:04 | HP ---
HISTORY OF PRESENT ILLNESS: Nabor Manning is a 58-year-old male patient presenting with perforated diverticulitis with abscess, undergone 02/03/2019, and placement of ureteral stents, laparotomy, mobilization of splenic flexure, sigmoid colon resection, Melanie's pouch marked with 2-0 Prolene and colostomy. Ureteral stents were removed. Intraoperatively Dr. Miles was called as the diverticular abscess involved the back wall of the bladder and this were evaluated, but there was no leakage. The patient postoperatively course complicated and he underwent on 02/11/2019 reexploration due to rectal stump leak, washing his abdomen out, closure of the rectal stump and placed an ABThera returning in 2 days for definitive closure of his abdominal wound, which had dehisced placement of a drain. Postoperatively, he has recovered and he is doing well. He had an abdominal abscess, non-amenable to percutaneous drainage. He subsequently has seen Dr. Davison and colonoscopy, proctoscopy performed. The patient works in the [employer] field. The patient is followed by Dr. jones and his metformin was recently discontinued. Plan is for colostomy reversal after clear liquids the day before and a bowel prep. PAST MEDICAL HISTORY: Hypertension, depression, diabetes, resolved. MEDICATIONS: 1. Risperdal. 2. Crestor. PAST SURGICAL HISTORY: CT-guided drain, exploratory laparotomy, colostomy, reopening, ABThera for rectal stump leak and subsequent washout and closure. REVIEW OF SYSTEMS: Noncontributory. SOCIAL HISTORY: Tobacco, none. Alcohol, none. PHYSICAL EXAMINATION: VITAL SIGNS: 115 pounds, 65 inches, 120/64, 98.6 degrees. HEAD, EARS EYES, NOSE AND THROAT: Unremarkable. LUNGS: Clear to auscultation. CARDIAC: Regular rate and rhythm without murmur or gallop. ABDOMEN: Soft and nontender. Colostomy present, healthy midline wound well healed without hernias. ASSESSMENT AND PLAN: Undesired colostomy. PLAN: Colostomy reversal laparoscopically open is indicated. He understands risks of infection, bleeding, reoperation, anastomotic leakage, and consents. We will plan this under general anesthesia and TAP block. Job ID: [id number]
[2019-05-26 12:27] VITALS: BMI 19.1
[2019-05-31] MEDS ORDERED: Ketorolac Tromethamine 30 MG/ML VIAL ONE (09:31)
[2019-05-31] MEDS ORDERED: Dexamethasone 4 mg/ml Vial ONE (09:43)
[2019-05-31] MEDS ORDERED: Lidocaine 1% (PF) 30 ML VIAL ONE (09:43)
[2019-05-31] MEDS ORDERED: Midazolam HCl 2 mg/2 ml Vial ONE ×2 (09:43→11:48)
[2019-05-31] MEDS ORDERED: Fentanyl 100 MCG/2 ML VIAL ONE ×3 (09:43→13:45)
[2019-05-31] MEDS ORDERED: Meropenem 2 GM in Admixture Fee 1 EACH IVPB SCH (09:45)
[2019-05-31] MEDS ORDERED: hydrALAZINE 20 MG/ML VIAL SLOW IVP PRN (15:57)
[2019-05-31] MEDS ORDERED: Ondansetron PF 4 MG/2 ML Vial IVP PRN (15:57)
[2019-05-31] MEDS ORDERED: Morphine 2 MG/ML SYRINGE SLOW IVP PRN (16:02)
[2019-05-31] MEDS ORDERED: traMADol HCl 50 MG TAB PO PRN (16:13)
[2019-05-31] MEDS ORDERED: Acetaminophen 1,000 MG in Premix Bag 1 BAG IVPB PRN (16:13)
[2019-05-31] MEDS: Morphine 4 MG/ML VIAL SLOW IVP PRN ×2 (17:12→19:36)
[2019-05-31] MEDS: D5 1/2 NS w/20 mEq KCL 1,000 ML IV SCH ×2 (17:17→23:39)
[2019-05-31] MEDS ORDERED: Bupivacaine HCl 0.5%/Epinephrine 1:200,000/PF 30 ml Vial ONE (17:36)
[2019-05-31] MEDS: Ketorolac Tromethamine 30 MG/ML VIAL IVP SCH ×2 (18:08→23:33)
[2019-05-31] MEDS: Acetaminophen 1,000 MG in Premix Bag 1 BAG IVPB SCH ×2 (18:08→23:34)
[2019-05-31] MEDS ORDERED: Glycopyrrolate 0.2 MG/ML 5 ML SYRINGE ONE (19:07)
[2019-05-31] MEDS ORDERED: PHENYLEPHRINE-NS 100 MCG/ML 10 ML SYRINGE ONE (19:07)
[2019-05-31] MEDS ORDERED: Naloxone HCl 0.4 mg/ml Vial ONE (19:07)
[2019-05-31] MEDS ORDERED: ePHEDrine 50 MG/ML VIAL ONE (19:07)
[2019-05-31] MEDS ORDERED: PROPOFOL 200 MG/20 ML VIAL ONE (19:07)
[2019-05-31] MEDS ORDERED: Lidocaine 1% PF 5 ML VIAL ONE (19:07)
[2019-05-31] MEDS ORDERED: Rocuronium Bromide 10 MG/ML (10ML VIAL) ONE (19:07)
[2019-05-31] MEDS: traMADol HCl 50 MG TAB PO PRN (20:54)
[2019-05-31] MEDS: Enoxaparin Sodium 40 MG/0.4 ML SYRINGE SC SCH (20:55)
[2019-05-31] MEDS: Famotidine/PF 20 mg/2ml Vial SLOW IVP SCH (20:55)
[2019-05-31] MEDS: Famotidine 20 MG TAB PO SCH (21:00)
[2019-06-01] MEDS: Ketorolac Tromethamine 30 MG/ML VIAL IVP SCH ×4 (05:04→23:44)
[2019-06-01] MEDS: Acetaminophen 1,000 MG in Premix Bag 1 BAG IVPB SCH ×2 (05:06→12:50)
[2019-06-01 06:02] LABS: #Lymphocytes 0.5 thou/uL (1.20-3.40); #Neutrophils 8.9 thou/uL (1.40-6.50); %Basophils 0.2 % (0.0-1.0); %Eosinophils 0.1 % (0.0-10.0); %Lymphocytes 4.7 % (21.0-51.0); %Monocytes 9.7 % (0.0-10.0); %Neutrophils 85.3 % (42.0-75.0); Hemoglobin 11.5 g/dL (14.0-18.0); Mean Corpuscular HGB CONC 33.6 g/dL (32.0-36.0); Mean Corpuscular Hemoglobin 29.3 pg (27.0-31.0); Mean Corpuscular Volume 87.5 fL (78.0-98.0); Mean Platelet Volume 7.9 fL (7.4-10.4); Platelet Count 213 thou/uL (130-400); RBC Distribution Width 12.6 % (11.5-14.5); Red Blood Cell (RBC) Count 3.93 mill/uL (4.70-6.10); White Blood Cell (WBC) Count 10.4 thou/uL (4.8-10.8)
[2019-06-01 06:17] LABS: Anion Gap 11 mmol/L (10-20); BUN (Urea Nitrogen) 11 mg/dL (8.4-25.7); Calc. Creatinine Clearance 80 mL/min (70-130); Calcium 8.5 mg/dL (7.8-10.44); Carbon Dioxide 24 mmol/L (22-29); Chloride 102 mmol/L (98-107); Estimated GFR-MDRD Greater than 90; Glucose 213 mg/dL (70-105); Potassium 4.3 mmol/L (3.5-5.1); Sodium 133 mmol/L (136-145)
--- NOTE | 2019-06-01 09:08 | OP ---
DATE OF PROCEDURE: 05/31/2019 PREOPERATIVE DIAGNOSES: Undesired colostomy, adhesions from prior surgery. PROCEDURES PERFORMED: Laparoscopic adhesiolysis, laparoscopic colostomy reversal, colorectal anastomosis. Checked under water, 31 mm EEA stapler, no leak. ANESTHESIA: General, TAP block. ESTIMATED BLOOD LOSS: 100 mL. DESCRIPTION OF PROCEDURE: The patient was taken to the operating room under general anesthesia, abdomen was prepared with ChloraPrep and perineum was prepared with Betadine after colostomy closed with continuous locked suture 2-0 silk. Right lateral subcostal incision was made. Pneumoperitoneum to 15 mmHg was obtained with a Veress needle, replaced with a 5 port, laparoscope was inserted. There were adhesions, difficult to navigate. Adhesion free area was appreciated in the right lower quadrant, and a 5 port was able to be placed. Scissors were placed. scissor adhesiolysis was carried out freeing enough area to place the right lateral midabdominal incision. Under laparoscopic visualization, a 5 port was placed. Adhesions were further carried out, and the midline was freed enough to place a 5 mm port paraumbilical, and further adhesiolysis was carried out. Another 5 port was placed in the left lower quadrant, and completion adhesiolysis was performed, freeing the viscera from the anterior abdominal wall, then from the pelvis, then from around the colostomy. At this point, the pelvis was dissected free, and the rectal stump was identified. It was scarred in but freed from the sacrum and dissected free circumferentially, identifying the rectum, freeing it. Once the rectum was dissected free, colostomy was inspected. Adhesions were taken down to ensure mobility. Under laparoscopic visualization, rectal dilators were placed from a 25 to 33 mm dilator, visualized into the rectum. At this point, the colostomy was taken down with a circumferential incision through skin, subcutaneous tissue, freeing it from the fascia, abdominal wall, and pneumoperitoneum was terminated. As Chacorta wound protector was placed, colon was brought out, and a colostomy closure was excised, and a 31 mm EEA anvil was placed, lubricated into the end-colostomy. A pursestring suture of 2-0 Prolene was placed securing it to the Anvil. The colon was inspected, noted to be viable and healthy. The colon was dropped back down to the abdominal cavity. The Chacorta wound protector was occluded. My gloves were changed. At this point, my assistant teaching professor in the lithotomy position placed a 31 mm EEA stapler transanal into the rectal stump visualized laparoscopically. Once this was accomplished, once the staple was noted to be in good position, the post advanced out the rectal stump, visualized laparoscopically, and mated to the Anvil of the proximal colon, and these were approximated with a torque fire range, fired, loosened, removed, complete donuts were noted. The anastomosis was checked under water initially with the proctoscope, then with a 30 mL Ross catheter, and there was no leak. The colon was viable. There was good hemostasis noted. Abdominal cavity was irrigated, irrigant evacuated. Pneumoperitoneum was evacuated. Chacorta wound protector was removed, and posterior fascia was closed with continuous suture of #1 PDS. Anterior fascia was closed with interrupted [id number] suture of 0 PDS. Once this was accomplished, abdominal cavity was irrigated. Subcutaneous tissues in the colostomy site approximating the puckering type suture of 3-0 Monocryl, and skin was closed with 4-0 Monocryl, and Dermabond was applied. Laparoscopic port sites were closed with interrupted subdermal 4-0 Monocryl, and [place] glue was applied. The patient tolerated the procedure well. Job ID: [id number]
[2019-06-01] MEDS: Famotidine 20 MG TAB PO SCH ×2 (09:51→21:08)
[2019-06-01] MEDS: Famotidine/PF 20 mg/2ml Vial SLOW IVP SCH (09:55)
--- NOTE | 2019-06-01 13:16 | PRG ---
DATE OF SERVICE: 06/01/2019 SUBJECTIVE: Mr. Manning is doing well today. He has tolerated his full liquids. He has not had any nausea or vomiting. OBJECTIVE: VITAL SIGNS: Temperature 97.8 degrees, pulse 70, and blood pressure 110/71. LUNGS: Clear to auscultation. CARDIAC: Regular rate and rhythm without murmur or gallop. ABDOMEN: Soft. Surgical wounds look good. Bowel sounds present. Postoperative tenderness. LABORATORY DATA: This morning, his white count is 10 and hemoglobin 11.5. Basic metabolic profile normal. Sodium 133, slightly hyponatremic. Glucose 179 to 213. ASSESSMENT AND PLAN: Postoperative colostomy reversal. He is doing well. Continue full liquids. He is saline locked. We will check his basic metabolic tomorrow for his hyponatremia. There is no indication to recheck a CBC. Continue full liquids today. Anticipate possible discharge home tomorrow. Pending clinical course. Job ID: [id number]
[2019-06-01] MEDS: Acetaminophen 500 MG TAB PO SCH ×2 (18:17→23:44)
[2019-06-01] MEDS: traMADol HCl 50 MG TAB PO PRN (18:27)
[2019-06-01] MEDS: Gabapentin 300 MG CAP PO SCH (21:09)
[2019-06-01] MEDS: Enoxaparin Sodium 40 MG/0.4 ML SYRINGE SC SCH (21:09)
[2019-06-02 05:49] LABS: Hemoglobin A1c 5.6 % (4.0-6.0)
[2019-06-02 06:07] LABS: Anion Gap 11 mmol/L (10-20); BUN (Urea Nitrogen) 10 mg/dL (8.4-25.7); Calc. Creatinine Clearance 79 mL/min (70-130); Calcium 8.6 mg/dL (7.8-10.44); Carbon Dioxide 29 mmol/L (22-29); Chloride 103 mmol/L (98-107); Estimated GFR-MDRD Greater than 90; Glucose 79 mg/dL (70-105); Potassium 4.5 mmol/L (3.5-5.1); Sodium 138 mmol/L (136-145)
[2019-06-02] MEDS: Ketorolac Tromethamine 30 MG/ML VIAL IVP SCH ×4 (06:59→23:55)
[2019-06-02] MEDS: Acetaminophen 500 MG TAB PO SCH ×4 (06:59→23:55)
[2019-06-02] MEDS: Gabapentin 300 MG CAP PO SCH ×2 (09:27→21:18)
[2019-06-02] MEDS: Famotidine 20 MG TAB PO SCH ×2 (09:27→21:18)
[2019-06-02] MEDS: traMADol HCl 50 MG TAB PO PRN ×2 (09:28→21:17)
[2019-06-02] MEDS: Enoxaparin Sodium 40 MG/0.4 ML SYRINGE SC SCH (21:17)
--- NOTE | 2019-06-02 21:31 | PRG ---
DATE OF SERVICE: SUBJECTIVE: Nabor Manning is doing well today. He is tolerating full liquids. He is not having nausea or vomiting. His pain is well controlled on oral analgesics. OBJECTIVE: VITAL SIGNS: Temperature 97.7 degrees, heart rate 70, and blood pressure 123/66. LUNGS: Clear to auscultation. CARDIAC: Regular rate and rhythm without murmur or gallop. ABDOMEN: Soft plus bowel sounds. Surgical wounds look good. Postoperative tenderness as expected. EXTREMITIES: Unremarkable. By the time of this dictation, patient has had a small bowel movement. LABORATORY DATA: His sodium is normal now. PLAN: Plan at this time is probable discharge home tomorrow. We will see how he is doing tomorrow. We will start him on a regular diet in the morning. Job ID: [id number]
[2019-06-03] MEDS: Acetaminophen 500 MG TAB PO SCH ×2 (06:25→12:57)
[2019-06-03] MEDS: Ketorolac Tromethamine 30 MG/ML VIAL IVP SCH (06:25)
[2019-06-03] MEDS: Famotidine 20 MG TAB PO SCH (09:31)
[2019-06-03] MEDS: Gabapentin 300 MG CAP PO SCH (09:32)
[2019-06-03 12:10] VITALS: BP 132/59; TEMP 98
--- NOTE | 2019-06-05 12:55 | DIS ---
DATE OF ADMISSION: 05/31/2019 DATE OF DISCHARGE: 06/03/2019 PROCEDURES THIS HOSPITALIZATION: Laparoscopic colostomy reversal, 31 mm EEA stapler, lysis of adhesions laparoscopically. HISTORY: A 58-year-old male, presented with diverticular abscess, not amenable to percutaneous drainage requiring laparotomy, sigmoid resection, Melanie pouch, colostomy, Melanie procedure. Postoperatively, he developed rectal stump leak, peritonitis, required reoperation with an ABThera and final definitive closure with a colostomy and over-sew his rectal stump, marked with Prolene. The patient convalesced, has had a colonoscopy and now has undergone a bowel prep and admitted after undergoing laparoscopic adhesiolysis and colostomy reversal. Postoperatively, he convalesced, tolerated his diet, resumed his home medications. He has tramadol at home. Prescriptions written. He will not fill it as he has left over at home. He will take Tylenol, Advil. He will resume his home medications. Diet and activity as tolerated. He will be off a week. He will follow up with me in 2 to 3 weeks. 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 Job ID: [id number]
== END 2019-06-03 14:22 | disposition home or self-care (01) | DRG 330 ==
LOC: SURG A 08:48 → SJJU 16:55
PROVIDERS: ADMIT Specialist; ATTEND Specialist
PROC: 0DQN0ZZ Repair Sigmoid Colon, Open Approach (ICD-10-PCS; principal; 2019-05-31)
DX: Z43.3 Encounter for attention to colostomy (principal); E87.1 Hypo-osmolality and hyponatremia; I10 Essential (primary) hypertension; F32.9 Major depressive disorder, single episode, unspecified; E11.9 Type 2 diabetes mellitus without complications
CPT/HCPCS: 36415; 36416; 80048; 83036; 85025; J0131; J0670; J1100; J1650; J1885; J2001; J2185; J2250; J2270; J2310; J2704; J3010; J3490; S0028

== ENCOUNTER 2020-08-20 10:18 | Emergency (ER) | payer BC, SELFPAY ==
[2020-08-20 11:25] LABS: #Lymphocytes 0.9 thou/uL (1.20-3.40); #Monocytes 0.6 thou/uL (0.11-0.59); #Neutrophils 4.9 thou/uL (1.40-6.50); %Basophils 0.2 % (0.0-1.0); %Eosinophils 0.1 % (0.0-10.0); %Lymphocytes 13.5 % (21.0-51.0); %Monocytes 8.9 % (0.0-10.0); %Neutrophils 77.3 % (42.0-75.0); Hemoglobin 15.2 g/dL (14.0-18.0); Mean Corpuscular HGB CONC 32.8 g/dL (32.0-36.0); Mean Corpuscular Hemoglobin 29.9 pg (27.0-31.0); Mean Corpuscular Volume 91.2 fL (78.0-98.0); Mean Platelet Volume 7.9 fL (7.4-10.4); Platelet Count 201 thou/uL (130-400); RBC Distribution Width 11.9 % (11.5-14.5); White Blood Cell (WBC) Count 6.3 thou/uL (4.8-10.8)
[2020-08-20] MEDS ORDERED: Fluorescein Opthalmic Strip ONE (11:28)
[2020-08-20 11:43] LABS: ALT (SGPT) 15 U/L (8-55); AST (SGOT) 12 U/L (5-34); Albumin 4.4 g/dL (3.5-5.0); Alkaline Phosphatase 111 U/L (40-110); Anion Gap 20 mmol/L (10-20); BUN (Urea Nitrogen) 20 mg/dL (8.4-25.7); Bilirubin, Total 0.3 mg/dL (0.2-1.2); Calc. Creatinine Clearance 0 mL/min (70-130); Calcium 9.5 mg/dL (7.8-10.44); Carbon Dioxide 27 mmol/L (22-29); Chloride 98 mmol/L (98-107); Globulin 2.8 g/dL (2.4-3.5); Glucose 198 mg/dL (70-105); Potassium 3.9 mmol/L (3.5-5.1); Protein, Total 7.2 g/dL (6.0-8.3); Sodium 141 mmol/L (136-145)
== END 2020-08-20 12:02 | disposition home or self-care (01) ==
LOC: ERS 10:18
DX: B02.9 Zoster without complications (principal); E78.00 Pure hypercholesterolemia, unspecified; F17.210 Nicotine dependence, cigarettes, uncomplicated
CPT/HCPCS: 36415; 80053; 85025; 99282

== ENCOUNTER 2021-01-31 11:25 | Observation (INO) | payer SELFPAY ==
[2021-01-31 11:50] LABS: #Basophils 0.1 thou/uL (0.0-0.2); #Eosinphils 0.1 thou/uL (0.0-0.7); #Lymphocytes 0.6 thou/uL (1.20-3.40); #Monocytes 0.8 thou/uL (0.11-0.59); #Neutrophils 6.1 thou/uL (1.40-6.50); %Basophils 0.7 % (0.0-1.0); %Eosinophils 1.2 % (0.0-10.0); %Monocytes 10.7 % (0.0-10.0); %Neutrophils 79.4 % (42.0-75.0); Hemoglobin 15.8 g/dL (14.0-18.0); Mean Corpuscular HGB CONC 33.6 g/dL (32.0-36.0); Mean Corpuscular Hemoglobin 30.5 pg (27.0-31.0); Mean Corpuscular Volume 90.7 fL (78.0-98.0); Mean Platelet Volume 7.3 fL (7.4-10.4); Platelet Count 183 thou/uL (130-400); RBC Distribution Width 12.1 % (11.5-14.5); Red Blood Cell (RBC) Count 5.18 mill/uL (4.70-6.10); White Blood Cell (WBC) Count 7.7 thou/uL (4.8-10.8)
[2021-01-31 12:19] LABS: ALT (SGPT) 13 U/L (8-55); AST (SGOT) 13 U/L (5-34); Albumin 4.6 g/dL (3.5-5.0); Alkaline Phosphatase 117 U/L (40-110); Anion Gap 15 mmol/L (10-20); BUN (Urea Nitrogen) 16 mg/dL (8.4-25.7); Bilirubin, Total 0.6 mg/dL (0.2-1.2); Calc. Creatinine Clearance 0 mL/min (70-130); Calcium 9.7 mg/dL (7.8-10.44); Carbon Dioxide 28 mmol/L (22-29); Chloride 97 mmol/L (98-107); Glucose 104 mg/dL (70-105); Potassium 3.9 mmol/L (3.5-5.1); Protein, Total 7.6 g/dL (6.0-8.3); Sodium 136 mmol/L (136-145)
[2021-01-31 13:03] LABS: Bilirubin Negative (Negative); Blood, Urine Negative (Negative); Clarity Clear (Clear); Glucose, Urine (Dipstick) Normal (Negative); Ketone, Urine Negative (Negative); Leukocyte Negative Leu/uL (Negative); Nitrite Negative (Negative); Protein, Urine (Dipstick) Negative (Neg-Trace); Specific Gravity, Urine 1.006 (1.002-1.036); Urobilinogen Normal mg/dL (Less than 2)
[2021-01-31] MEDS ORDERED: Senokot S 8.6-50 MG TAB PO PRN (16:41)
[2021-01-31] MEDS ORDERED: Bisacodyl 5 MG TAB PO SCH (16:45)
[2021-01-31] MEDS ORDERED: Lactated Ringer's 1,000 ML IV SCH ×2 (16:45→17:33)
[2021-01-31] MEDS ORDERED: Nicotine 14 MG PATCH TD SCH (17:00)
[2021-01-31 17:36] LABS: Hemoglobin A1c 5.5 % (4.0-6.0)
[2021-01-31 18:40] VITALS: BMI 16.2
[2021-01-31] MEDS ORDERED: Acetaminophen 325 MG TAB PO PRN (18:45)
[2021-01-31] MEDS ORDERED: Sodium Chloride 0.9% 1,000 ML IV SCH (18:45)
[2021-01-31] MEDS ORDERED: Ondansetron PF 4 MG/2 ML Vial IVP PRN (18:45)
[2021-01-31] MEDS ORDERED: Ondansetron ODT 4 MG TAB SL PRN (18:45)
[2021-02-01 01:01] LABS: SARS-CoV-2 PCR by NAA Not Detected (NotDetected)
[2021-02-01 07:30] VITALS: BP 124/74; TEMP 98.5
== END 2021-02-01 11:59 | disposition home or self-care (01) ==
LOC: ERS 11:25 → T4-B 16:46
PROVIDERS: ADMIT Emergency Medicine; ATTEND Emergency Medicine
DX: R55 Syncope and collapse (principal); R42 Dizziness and giddiness; N42.89 Other specified disorders of prostate; E78.5 Hyperlipidemia, unspecified; F17.210 Nicotine dependence, cigarettes, uncomplicated; R19.7 Diarrhea, unspecified; Z86.39 Personal history of other endocrine, nutritional and metabolic disease; Z79.899 Other long term (current) drug therapy; Z20.822 Contact with and (suspected) exposure to COVID-19
CPT/HCPCS: 36415; 71045; 80053; 81003; 83036; 83735; 84153; 84443; 84484; 85025; 93005; G0378; U0003; U0005

== ENCOUNTER 2021-02-02 16:34 | Emergency (ER) | payer SELFPAY ==
[2021-02-02 17:14] LABS: #Lymphocytes 0.7 thou/uL (1.20-3.40); #Monocytes 0.7 thou/uL (0.11-0.59); #Neutrophils 4.9 thou/uL (1.40-6.50); %Basophils 0.3 % (0.0-1.0); %Eosinophils 0.6 % (0.0-10.0); %Lymphocytes 11.4 % (21.0-51.0); %Monocytes 10.3 % (0.0-10.0); %Neutrophils 77.4 % (42.0-75.0); Hemoglobin 16.3 g/dL (14.0-18.0); Mean Corpuscular HGB CONC 32.3 g/dL (32.0-36.0); Mean Corpuscular Hemoglobin 29.5 pg (27.0-31.0); Mean Corpuscular Volume 91.2 fL (78.0-98.0); Mean Platelet Volume 7.4 fL (7.4-10.4); Platelet Count 163 thou/uL (130-400); Red Blood Cell (RBC) Count 5.52 mill/uL (4.70-6.10); White Blood Cell (WBC) Count 6.3 thou/uL (4.8-10.8)
[2021-02-02 17:41] LABS: ALT (SGPT) 14 U/L (8-55); AST (SGOT) 16 U/L (5-34); Albumin 4.3 g/dL (3.5-5.0); Alkaline Phosphatase 101 U/L (40-110); Anion Gap 13 mmol/L (10-20); BUN (Urea Nitrogen) 16 mg/dL (8.4-25.7); Bilirubin, Total 0.5 mg/dL (0.2-1.2); Calc. Creatinine Clearance 0 mL/min (70-130); Calcium 10.1 mg/dL (7.8-10.44); Carbon Dioxide 29 mmol/L (22-29); Chloride 98 mmol/L (98-107); Globulin 2.8 g/dL (2.4-3.5); Glucose 106 mg/dL (70-105); Potassium 4.2 mmol/L (3.5-5.1); Protein, Total 7.1 g/dL (6.0-8.3); Sodium 136 mmol/L (136-145)
[2021-02-02] MEDS ORDERED: Dexamethasone 4 mg/ml Vial ONE (18:39)
== END 2021-02-02 20:18 | disposition home or self-care (01) ==
LOC: ERS 16:34
DX: J44.1 Chronic obstructive pulmonary disease with (acute) exacerbation (principal); E78.00 Pure hypercholesterolemia, unspecified; F17.210 Nicotine dependence, cigarettes, uncomplicated
CPT/HCPCS: 36415; 71045; 80053; 83605; 83880; 84484; 85025; 93005; 96361; 96374; J1100